=== PATIENT | female | born 1970 | race Caucasian/White ===

== ENCOUNTER 2022-11-30 08:21 | Outpatient (CLI) | payer OTHER, SELFPAY ==
[2022-11-30 10:09] LABS: Basophils Absolute Auto 0.1 K/mm3 (0.0-0.1); Eosinophils Absolute Auto 0.2 K/mm3 (0-0.3); Eosinophils Percent Auto 2.6 % (0-4.4); Hematocrit 45.7 % (37.0-47.0); Hemoglobin 14.8 g/dL (12.0-15.0); Immature Granulocyte Absolute 0.06 K/mm3 (0.00-0.031); Immature Granulocyte Percent A 0.6 % (0-0.5); Lymphocytes Absolute Auto 1.76 K/mm3 (0.9-3.2); Mean Corpuscular HGB Conc 32.4 g/dl (32-36); Mean Corpuscular Hemoglobin 27.7 pg (26-34); Mean Corpuscular Volume 85.6 fl (80-100); Mean Platelet Volume 9.1 fl (7.4-10.4); Monocytes Absolute Auto 0.5 K/mm3 (0.1-0.6); Monocytes Percent Auto 4.9 % (2.6-8.5); Neutrophils Absolute Auto 6.7 K/mm3 (1.3-6.7); Neutrophils Percent Auto 71.9 % (45.5-73.1); Platelet Count Result 330 k/mm3 (150-375); Red Blood Count 5.34 M/mm3 (4.2-5.4); Red Cell Distribution Width 13.7 % (11.5-14.5); White Blood Count 9.3 K/mm3 (4.5-10.0)
[2022-11-30 10:23] LABS: Alanine Aminotransferase 13 U/L (6-35); Albumin Level 4.1 g/dL (3.5-5.1); Alkaline Phosphatase 71 U/L (38-126); Anion Gap 7 mmol/L (8-16); Aspartate Amino Transferase 24 U/L (14-36); Bilirubin,Total 0.7 mg/dL (0.2-1.3); Blood Urea Nitrogen 14 mg/dL (7-17); Carbon Dioxide 28 mmol/L (22-30); Chloride 104 mmol/L (98-107); Cholesterol 271 mg/dL (0-200); Estimated Glomerular Filt Rate > 60; Glucose 112 mg/dL (65-110); HDL Direct 34 mg/dL; Potassium 4.1 mmol/L (3.4-5.0); Sodium 139 mmol/L (137-145); Triglycerides 180 mg/dL (<150)
[2022-11-30 10:34] LABS: LDL Cholesterol Direct 175 mg/dL
== END 2022-11-30 08:22 | disposition home or self-care (01) ==
DX: Z00.00 Encounter for general adult medical examination without abnormal findings (principal); I12.9 Hypertensive chronic kidney disease with stage 1 through stage 4 chronic kidney disease, or unspecified chronic kidney disease
CPT/HCPCS: 36415; 80053; 80061; 82043; 84443; 85025

== ENCOUNTER 2022-11-30 08:35 | Outpatient (CLI) | payer OTHER, SELFPAY ==
[2022-11-30 19:43] LABS: Creatinine Urine 47.7 mg/dL
[2022-11-30 20:07] LABS: MALB Creatinine Ratio < 12.6 mg/g (0-30); Microalbumin Urine Random < 6.0 mg/L (0-16.7)
== END 2022-11-30 08:36 | disposition home or self-care (01) ==
LOC: ANHGOSHLAB 08:36
DX: E11.9 Type 2 diabetes mellitus without complications (principal); Z79.4 Long term (current) use of insulin
CPT/HCPCS: 82043

== ENCOUNTER 2023-07-10 08:02 | Outpatient (CLI) | payer OTHER, SELFPAY ==
[2023-07-10 20:19] LABS: Basophils Absolute Auto 0.1 K/mm3 (0.0-0.1); Eosinophils Absolute Auto 0.3 K/mm3 (0-0.3); Eosinophils Percent Auto 2.9 % (0-4.4); Hematocrit 46.1 % (37.0-47.0); Hemoglobin 14.9 g/dL (12.0-15.0); Immature Granulocyte Absolute 0.03 K/mm3 (0.00-0.031); Immature Granulocyte Percent A 0.3 % (0-0.5); Lymphocytes Absolute Auto 1.56 K/mm3 (0.9-3.2); Lymphocytes Percent Auto 16.2 % (18.3-44.2); Mean Corpuscular HGB Conc 32.3 g/dl (32-36); Mean Corpuscular Volume 86.7 fl (80-100); Mean Platelet Volume 9.3 fl (7.4-10.4); Monocytes Absolute Auto 0.4 K/mm3 (0.1-0.6); Monocytes Percent Auto 4.2 % (2.6-8.5); Neutrophils Absolute Auto 7.3 K/mm3 (1.3-6.7); Neutrophils Percent Auto 75.4 % (45.5-73.1); Platelet Count Result 313 k/mm3 (150-375); Red Blood Count 5.32 M/mm3 (4.2-5.4); Red Cell Distribution Width 13.2 % (11.5-14.5); White Blood Count 9.6 K/mm3 (4.5-10.0)
[2023-07-10 20:38] LABS: Alanine Aminotransferase 21 U/L (6-35); Albumin Level 4.3 g/dL (3.5-5.1); Alkaline Phosphatase 74 U/L (38-126); Anion Gap 9 mmol/L (4-12); Aspartate Amino Transferase 35 U/L (14-36); Blood Urea Nitrogen 12 mg/dL (7-17); Calcium 8.8 mg/dL (8.4-10.2); Carbon Dioxide 23 mmol/L (22-30); Chloride 106 mmol/L (98-107); Cholesterol 166 mg/dL (0-200); Estimated Glomerular Filt Rate > 60; Glucose 107 mg/dL (65-110); HDL Direct 37 mg/dL; Sodium 138 mmol/L (137-145); Triglycerides 241 mg/dL (<150)
[2023-07-10 20:48] LABS: Hemoglobin A1C 5.4 % (<5.7)
[2023-07-10 20:49] LABS: LDL Cholesterol Direct 91 mg/dL
[2023-07-10 21:02] LABS: Creatinine Urine 95.9 mg/dL
[2023-07-10 21:41] LABS: MALB Creatinine Ratio < 6.3 mg/g (0-30); Microalbumin Urine Random < 6.0 mg/L (0-16.7)
[2023-07-10 22:11] LABS: Vitamin B12 > 1000.0 pg/mL (239-931)
== END 2023-07-10 08:03 | disposition home or self-care (01) ==
LOC: ANHGOSHLAB 08:09
DX: E11.29 Type 2 diabetes mellitus with other diabetic kidney complication (principal); R80.9 Proteinuria, unspecified; Z79.4 Long term (current) use of insulin
CPT/HCPCS: 36415; 80053; 80061; 82043; 82607; 83036; 85025

== ENCOUNTER 2023-12-24 08:02 | Outpatient (CLI) | payer OTHER, SELFPAY ==
[2023-12-24 14:31] LABS: Basophils Absolute Auto 0.1 K/mm3 (0.0-0.1); Basophils Percent Auto 1.4 % (0.2-1.2); Eosinophils Absolute Auto 0.2 K/mm3 (0-0.3); Eosinophils Percent Auto 2.3 % (0-4.4); Hematocrit 46.4 % (37.0-47.0); Hemoglobin 14.8 g/dL (12.0-15.0); Immature Granulocyte Absolute 0.03 K/mm3 (0.00-0.031); Immature Granulocyte Percent A 0.4 % (0-0.5); Lymphocytes Absolute Auto 1.69 K/mm3 (0.9-3.2); Lymphocytes Percent Auto 22.9 % (18.3-44.2); Mean Corpuscular HGB Conc 31.9 g/dl (32-36); Mean Corpuscular Hemoglobin 28.2 pg (26-34); Mean Corpuscular Volume 88.4 fl (80-100); Mean Platelet Volume 9.3 fl (7.4-10.4); Monocytes Absolute Auto 0.4 K/mm3 (0.1-0.6); Platelet Count Result 281 k/mm3 (150-375); Red Blood Count 5.25 M/mm3 (4.2-5.4); Red Cell Distribution Width 13.2 % (11.5-14.5); White Blood Count 7.4 K/mm3 (4.5-10.0)
[2023-12-24 14:57] LABS: Alanine Aminotransferase 20 U/L (6-35); Albumin Level 4.1 g/dL (3.5-5.1); Alkaline Phosphatase 73 U/L (38-126); Anion Gap 7 mmol/L (4-12); Aspartate Amino Transferase 53 U/L (14-36); Bilirubin,Total 0.8 mg/dL (0.2-1.3); Blood Urea Nitrogen 12 mg/dL (7-17); Calcium 8.8 mg/dL (8.4-10.2); Carbon Dioxide 28 mmol/L (22-30); Chloride 104 mmol/L (98-107); Cholesterol 171 mg/dL (0-200); Estimated Glomerular Filt Rate > 60; Glucose 88 mg/dL (65-110); HDL Direct 44 mg/dL; Potassium 3.7 mmol/L (3.4-5.0); Sodium 139 mmol/L (137-145); Triglycerides 145 mg/dL (<150)
[2023-12-24 15:09] LABS: LDL Cholesterol Direct 81 mg/dL
[2023-12-24 18:32] LABS: Hemoglobin A1C 5.6 % (<5.7)
== END 2023-12-24 08:03 | disposition home or self-care (01) ==
DX: E11.29 Type 2 diabetes mellitus with other diabetic kidney complication (principal); R80.8 Other proteinuria; Z79.4 Long term (current) use of insulin
CPT/HCPCS: 36415; 80053; 80061; 82607; 83036; 85025

== ENCOUNTER 2024-03-02 14:50 | Outpatient (NON) | payer OTHER, SELFPAY ==
[2024-03-02 19:52] LABS: Creatinine Urine 234.1 mg/dL
== END 2024-03-02 14:51 | disposition home or self-care (01) ==
LOC: ANHGOSHLAB 14:53
DX: E11.9 Type 2 diabetes mellitus without complications (principal); Z79.4 Long term (current) use of insulin
CPT/HCPCS: 82043

== ENCOUNTER → 2024-08-21 13:42 | Outpatient (REF) | payer OTHER, SELFPAY ==
[2024-08-21 19:08] LABS: Urine Cotinine NEGATIVE
== END ==
LOC: ANHLAB 13:42
DX: Z00.00 Encounter for general adult medical examination without abnormal findings (principal)
CPT/HCPCS: 80307

== ENCOUNTER 2025-03-10 07:43 | Outpatient (CLI) | payer OTHER, SELFPAY ==
--- OUTSIDE RECORDS SUMMARY | 2025-03-10 07:48 | XMS_ITS | Encounter Summary ---
Author Organization [facility] Address [address] [place] [address] Care Team Providers Care Email Administrator Name Role Phone Lilian Moore MD Primary Care Provider [phone] Encounter Details Date Type Department Care Team (Late Contact Info) Description 08/21/2004 Outpatient Historical [facility] Maternal and Ground Floor S [facility] [address] [place] [id number] Jose Humphreys DO [address] [facility] [address] [address] Social History Tobacco Use Types Packs/Day Years Used Date Smoking Tobacco: Never Assessed Comments Unknown Sex and Gender Information Value Date Recorded Sex Assigned at Not on file Legal 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 Gender Identity Not on file Sexual Orientation Not on file documented as of this encounter Plan of Treatment Upcoming Encounters Date Type Department Care Team (Late Contact Info) Description 05/11/2025 11:20 AM MACHINE WASHER Office Visit [facility] Primary Care [address] [address] Lilian Moore MD [address] [place] [phone] 07/12/2025 3:00 PM CDT Office Visit [facility] Diabetes Care [facility] [id number] [place] [address] [address] [place] [phone] Pallavi Laurent, CANDY MIXER [address] [facility] [address] [place] [address] documented as of this encounter Visit Diagnoses Not on filedocumented in this encounter Care Teams Email Administrator Relationship Specialty Start Date End Date Lilian Moore MD [address] [place] [phone] PCP - General Family Practice 05/07/24 documented as of this encounter
--- OUTSIDE RECORDS SUMMARY | 2025-03-10 07:48 | XMS_ITS | Encounter Summary ---
Author Organization [facility] Address [address] [place] [address] Care Team Providers Care Kier Tender Name Role Phone Lilian Moore MD Primary Care Provider [phone] Encounter Details Date Type Department Care Team (Late Contact Info) Description 05/22/2004 Outpatient Historical [facility] Maternal and Ground Floor S [facility] [address] [place] [phone] Andre Gutierrez MD [address] [place] [address] Social History Tobacco Use Types Packs/Day Years Used Date Smoking Tobacco: Never Assessed Comments Unknown Sex and Gender Information Value Date Recorded Sex Assigned at Not on file 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 Gender Identity Not on file Sexual Orientation Not on file documented as of this encounter Plan of Treatment Upcoming Encounters Date Type Department Care Team (Late st Contact Info) Description 05/11/2025 11:20 AM BUILDING ECONOMIST Office Visit [facility] Primary Care [address] [address] Lilian Moore MD [facility] [place] [address] 07/12/2025 3:00 PM CDT Office Visit [facility] Diabetes Care [facility] [id number] [place] [address] [address] [place] [phone] Pallavi Laurent, WATER SYSTEMS ENGINEER [address] [facility] [address] [place] [address] documented as of this encounter Visit Diagnoses Not on filedocumented in this encounter Care Teams Kier Tender Relationship Specialty Start Date End Date Lilian Moore MD [address] [place] [phone] PCP - General Family Practice 05/07/24 documented as of this encounter
--- OUTSIDE RECORDS SUMMARY | 2025-03-10 07:48 | XMS_ITS | Encounter Summary ---
Author Organization [facility] Address [address] [place] [address] Care Team Providers Care Marketing Operations Manager Name Role Phone Lilian Moore MD Primary Care Provider [phone] Encounter Details Date Type Department Care Team (Latest Contact Info) Description 05/12/2004 Outpatient Historical [facility] Mikhail Talbot MD [address] [place] [address] ELDER MULTIGRAVID-ANTEPART UM (Primary Dx) Social History Tobacco Use Types Packs/Day Years Used Date Smoking Tobacco: Never Assessed Comments Unknown Sex and Gender Information Value Date Recorded Sex Assigned at Not on file Legal Sex Female 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 HYDROLOGIC MODELER Gender Identity Not on file Sexual Orientation Not on file documented as of this encounter Plan of Treatment Upcoming Encounters Date Type Department Care Team (Late st Contact Info) Description 05/11/2025 11:20 AM HYDROLOGIC MODELER Office Visit [facility] Primary Care [address] [address] Lilian Moore MD [address] [place] [phone] 07/12/2025 3:00 PM CDT Office Visit [facility] Diabetes Care [place] [address] [address] Pallavi Laurent, PILOT PLANT RESEARCH TECHNICIAN [address] [facility] [address] [place] [address] documented as of this encounter Visit Diagnoses Diagnosis Elderly multigravida with antepartum condition or complication- Primary documented in this encounter Care Teams Marketing Operations Manager Relationship Specialty Start Date End Date Lilian Moore MD [address] [place] [phone] PCP - General Family Practice 05/07/24 documented as of this encounter
--- OUTSIDE RECORDS SUMMARY | 2025-03-10 07:48 | XMS_ITS | Encounter Summary ---
Author Organization [facility] Address [address] [place] [address] Care Team Providers Care Financial Aid Director Name Role Phone Lilain Moore MD Primary Care Provider Encounter Details Date Type Department Care Team (Late Contact Info) Description 06/05/2004 Outpatient [address] 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 STORE MARKETING REPRESENTATIVE Gender Identity Not on file Sexual Orientation Not on file documented as of this encounter Plan of Treatment Upcoming Encounters Date Type Department Care Team (Late st Contact Info) Description 05/11/2025 11:20 AM IN STORE MARKETING REPRESENTATIVE Office Visit [facility] Primary Care [address] [address] Lilian Moore MD [facility] [place] [address] 07/12/2025 3:00 PM CDT Office Visit [facility] Diabetes Care [facility] [id number] [place] [address] [address] [place] [phone] Pallavi Laurent, PUBLIC POLICY ASSOCIATE [address] [facility] [address] [place] [address] documented as of this encounter Visit Diagnoses Not on filedocumented in this encounter Care Teams Financial Aid Director Relationship Specialty Start Date End Date Lilian oMore MD [address] [place] [phone] PCP - General Family Practice 05/07/24 documented as of this encounter
--- OUTSIDE RECORDS SUMMARY | 2025-03-10 07:48 | XMS_ITS | Encounter Summary ---
Author Organization [facility] Address [address] [place] [address] Care Team Providers Care Electroplater Apprentice Name Role Phone Lilian Moore MD Primary Care Provider [phone] Encounter Details Date Type Department Care Team (Late Contact Info) Description 10/18/1998 Outpatient Historical [facility] Medical [place] [facility] [address] [facility] [address] [phone] Odette Porter Social History Tobacco Use Types Packs/Day Years Used Date Smoking Tobacco: Never Assessed Comments Unknown Sex and Gender Information Value Date Recorded Sex Assigned at Not on file Legal Sex Female 3:48 AM PROGRAM ATTENDANT Gender Identity Not on file Sexual Orientation Not on file documented as of this encounter Plan of Treatment Upcoming Encounters Date Type Department Care Team (Late Contact Info) Description 05/11/2025 11:20 AM PROGRAM ATTENDANT Office Visit [facility] Primary Care [address] [address] Lilian Moore MD [address] [place] [phone] 07/12/2025 3:00 PM CDT Office Visit [facility] Diabetes Care [place] [address] [facility] [address] [place] [phone] Pallavi Laurent FNP [address] [facility] [address] [place] [phone] documented as of this encounter Visit Diagnoses Not on filedocumented in this encounter Care Teams Electroplater Apprentice Relationship Specialty Start Date End Date Lilian Moore MD [facility] [place] [address] PCP - General Family Practice 05/07/24 documented as of this encounter
--- OUTSIDE RECORDS SUMMARY | 2025-03-10 07:48 | XMS_ITS | Clinical Summary ---
Author Organization [facility] Address [address] [place] [address] Phone Care Team Providers Care Hand Turner Name Role Phone Lilian Moore MD Primary Care Provider [phone] Allergies Active Allergy Reactions Criticality Noted Date Comments Adhesive Tape-Silicones Itching,Other (S ee Comments) Medium 07/29/2024 Blisters reported from tape applied post breast biopsy on 07/27/24 Meperidine 03/20/2004 Propoxyphene N-Acetaminophen 03/20/2004 Medications Blood-Glucose Sensor (Dexcom G7 Sensor) Device Apply to skin every 10 days 9 Each 3 024 Active tirzepatide (Mounjaro) 15 mg/0.5 mL Pen Injector Inject 0.5 mL (15 mg) by subcutaneous injection every 7 days. 6 mL 3 025 Active atorvastatin (LIPITOR) 80 mg tabletIndications:Pure hypercholesterolemia Take 1 Tablet (80 mg) by mouth late in the day. 100 Tablet 3 025 Active ketorolac tromethamine (TORADOL) 10 mg tablet Take 1 Tablet (10 mg) by mouth every 6 hours as needed for Pain. 15 Tablet 025 Active methocarbamoL (ROBAXIN) 750 mg tablet Take 1 Tablet (750 mg) by mouth 4 times daily. 20 Tablet 025 Active SUMAtriptan (IMITREX) 50 mg tabletIndications:Migra ine without status migrainosus, not intractable, unspecified migraine type TAKE 1 TABLET AT FIRST ONSET OF H.A. MAY REPEAT IN 2 HRS. MAX OF 4 IN 24 HOURS. 9 Tablet 5 025 Active Active Problems Problem Noted Date Diagnosed Date Migraine without status migrainosus, not intract able 07/22/2015 Pure hypercholesterolemia 04/22/2015 Assessment & Plan (07/13/2024 4:28 PM CDT): Stable. Continue statin at current dose daily. See medication list. Assessment & Plan (04/01/2023 4:28 PM RETAIL STORE ASSISTANT): Stable. Atorvastatin 80 mg daily Type 2 diabetes mellitus wit h microalbuminuria, with long-term current use of insulin 01/14/2015 Overview (08/21/2016): 08/2106: JESSICA negative; C-pep 2.2 Assessment & Plan (07/13/2024 4:28 PM CDT): Well controlled. Continue current plan of care. Continue current medications.Mounjaro 15 mg weekly Dexcom G6 CGM. Blood glucose goals and diabetes diet reviewed with patient. Increase physical activity as able. Orders: POC HEMOGLOBIN A1C [place] CONTINUOUS GLUCOSE MONITORING ANALYSIS I&R Assessment & Plan (08/02/2016 2:17 PM CDT): Diabetes: Inadequate control. Medications reviewed and refilled/adjusted as indicated. See medication orders. Labs ordered/reviewed. Unable to tolerate high dose metformin GLP-1 previously ineffective Family history of breast cancer in first degree relative 06/11/2014 Morbid obesity with body mass index of 40.0-49.9 02/06/2013 Assessment & Plan (07/13/2024 4:28 PM CDT): Increase physical activity as able. Sebaceous cyst 12/11/2005 Resolved Problems Problem Noted Date Diagnosed Date Resolved Date Insulin pump in place 01/01/20222024 Benign hypertension 04/22/2015 04/10/19 24 DM (diabetes mellitus), type 2 02/06/2013 01/14/2015 CKD (chronic kidney disease) stage 1, GFR 90 ml/min or greater 02/06/2013 06/20/2020 Hypertension 03/03/2012 04/22/2015 Diabetes mellitus type II, c ontrolled, with no complications 01/26/2011 02/06/2013 Hyperlipidemia 01/26/2011 04/22/2015 Impaired fasting glucose 12/11/200501/2011 ABN GLUCOSE-ANTEPARTUM 12/20/200401/26 Routine general medical exam ination at a health care facility 12/20/2004 02/03/2010 Screening for lipoid disorders 12/20/2004 02/03/2010 Need for prophylactic vaccin ation with tetanus-diphtheria (Td) 12/20/2004 02/03/2010 Encounters Date Type Department Care Team Description 03/09/2025 External Device Data STL ABSTRACTION Provider, Abstract 03/09/2025 External Device Data STL ABSTRACTION Provider, Abstract 02/16/2025 External Device Data STL ABSTRACTION Provider, Abstract 02/09/2025 External Device Data STL ABSTRACTION Provider, Abstract 02/02/2025 External Device Data STL ABSTRACTION Provider, Abstract 01/19/2025 External Device Data STL ABSTRACTION Provider, Abstract from Last 3 Months Immunizations Immunization Administration Dates Next Due (ADACEL/BOOSTRIX)(10 YR UP) TDAP VACCINE, 0.5ML, IM 11/06/2024,01/14/2015 (PFIZER)(12 YR UP) COVID-19 VACCINE - EMERGENCY USE AUTHORIZATION, MRNA, [id number](PF) 30 MCG/0.3 ML IM SUSP 03/09/2021,05/31/2020,05/10/2020 (PNEUMOVAX 23)(50 YRS UP) PN EUMOCOCCAL POLYSACCHARIDE (PPV23) 0.5 ML, IM 01/26/2011 (PREVNAR 13)(6 WKS UP) PNEUM OCOCCAL CONJUGATE (PCV13) 0.5 ML, IM 03/28/2016 (RECOMBIVAX HB/ENGERIX-B)(11 YR UP) HEPATITIS B VACCINE 10 MCG/1 ML OR 20 MCG/1 ML ADOL OR ADULT 2 - 3 DOSE PF, IM 07/01/2018,05/07/2018 (TDVAX)(7 YRS UP) TETANUS AN D DIPHTHERIA TOXOIDS, ADSORBED (2 LF OF TETANUS TOXOID AND 2 LF OF DIPHTHERIA TOXOID), 0.5ML (PF), IM 12/20/2004 INFLUENZA VACCINE QUADRIVALE NT 3 YR UP PF IM 12/11/2019,01/31/2019,03/13/2018 INFLUENZA VACCINE TRIVALENT SPLIT VIRUS, (6 MOS UP), 0.5ML (PF), IM 12/24/2023 Influenza Seasonal Unspecifi ed Formulation IM 12/16/2020,12/12/2019,01/08/2019,02/15,12/17/2011,12/22/2010 Influenza Vaccine Split 3+ Yrs IM 2016,01/14/2015,02/06/2013,02/03 Family History Medical History Relation Name Comments Heart Disease Father Elmo Garcia High Cholesterol Father Elmo Garcia Hypertension Father Elmo Garcia Skin Cancer Father Elmo Garcia Emphysema Maternal Grandfather Thyroid Disease Maternal Grandmother Kelly Rico Breast Cancer Mother Charlotte Garcia early 40s Diabetes Mother Charlotte Garcia High Cholesterol Mother Charlotte Garcia Hypertension Mother Charlotte Garcia Asthma Son Keenan Marshall Bronchitis Neg Hx Cancer Neg Hx Colon Cancer Neg Hx Heart Failure Neg Hx Ovarian Cancer Neg Hx Relation Name Status Comments Father Elmo Garcia Maternal Grandfather Maternal Grandmother Kelly Rico Mother Charlotte Garcia Son Keenan Marshall Social History Tobacco Use Types Packs/Day Years Used Date Smoking Tobacco: Never Smokeless Tobacco: Never Tobacco Cessation:Counseling Given: No Alcohol Use Standard Drinks/Week Comments Yes 0 (1 standard drink = 0.6 oz pur e alcohol) on occasion Feeling Safe Answer Date Recorded Are you in a relationship wi th someone who hurts you emotionally and/or physically? No 08/10/2022 Comments No Sex and Gender Information Value Date Recorded Sex Assigned at Not on file Legal Sex Female 3:48 AM RETAIL STORE ASSISTANT Gender Identity Not on file Sexual Orientation Not on file Occupation Industry Job Start Date Job End Date Not on file Not on file Not on file Not on file Last Filed Vital Signs Vital Sign Reading Time Taken Comments Blood Pressure 132/78 11/06/2024 11:44 AM CDT Pulse 82 11/06/2024 11:44 AM CDT Temperature 36.3 C (97.3 F) 11/06/2024 11:44 AM CDT Respiratory Rate 16 2024 8:53 AM CDT Oxygen Saturation 98% 11/06/2024 11:44 AM CDT Inhaled Oxygen Concentration - - Weight 112.9 kg (249 lb) 11/06/2024 11:44 AM CDT Height 165.1 cm (5' 5) 11/06/2024 11:44 AM CDT Body Mass Index 41.44 11/06/2024 11:44 AM CDT Plan of Treatment Upcoming Encounters Date Type Department Care Team (Late st Contact Info) Description 05/11/2025 11:20 AM RETAIL STORE ASSISTANT Office Visit [facility] Primary Care [facility] [address] [place] [phone] Lilian Moore MD [address] [place] [address] 07/12/2025 3:00 PM CDT Office Visit [facility] Diabetes Care [place] [address] [facility] [address] [place] [address] Pallavi Laurent, CAR [address] [facility] [address] [place] [phone] Health Maintenance Due Date Last Done Comments COLORECTAL SCREENING 2013 Flex Sig/CT Colonography Q 5 years 2013 ZOSTER VACCINE (1 of 2) 2018 HEPATITIS B VACCINES (3 of 3 - 19+ 3-dose series) 11/04/2018 07/01/2018, 05/07/2018 FIT/FOBT Q 1 year 10/12/2020 10/13/2019 PAP SMEAR 10/14/2023 10/13/2020, 09/16, 09/25/2010, Additional history exists DIABETES ANNUAL RETINAL EXAM 03/23/202408/2023, 03/21/2022, 12/13/2020, Additional history exists INFLUENZA VACCINE (#1) 2024 , 12/16/2020, 12/12/2019, Additional history exists COVID-19 Vaccine (2024-2 6 season) 2024 03/09/2021, 05/31/2020, 05/10/2020 LDL CHOLESTEROL ANNUAL 12/23/2024 , 11/18/2021, 09/16/2020, Additional history exists DIABETES HBA1C Q 6 MONTHS 01/12/20252024, 12/24/2023, 04/01/2023, Additional history exists DIABETES MICROALBUMIN ANNUAL SCREEN 03/02/2025 03/02/2024, 01/13/2024, 12/10/2022, Additional history exists DIABETES ANNUAL FOOT EXAM 05/07/20252024, 01/01/2022, 12/13/2020, Additional history exists DIABETES: A1C (Auto Order) 07/13/202507/13, 12/24/2023, 04/01/2023, Additional history exists BREAST CANCER SCREENING 2025 07/28/19, 06/01/2024, 02/15/2022, Additional history exists CERVICAL CANCER SCREENING 10/13/2025 HPV/Cotest (21-29) 10/13/2025 10/13/2020, 10/13/2019 HPV/Cotest (30-65) 10/13/2025 10/13/2020, 10/13/2019 Colorectal Cancer Screening 05/20/2027 FIT-DNA Q 3 years 05/20/2027 05/19/2024 DTAP/TDAP/TD VACCINES (3 - T d or Tdap) 11/06/2034 11/06/2024, 01/14/2015, 12/20/2004 Medical Devices Implanted Type Area Foundry Helper Device Identifier Shelf Expiration Date Model / Serial / Lot Clip-07/27/2024 Implanted:Qty: 1 on 2024 by Rema Magana MD Clip Right: Breast 02/25/2025 SMARK-EVIVA -13 / / [id number] Description:SECUREMARK SITE 1 MARKER Procedures Procedure Name Priority Date/Time Associated Diagnosis Comments MAMMO DIAG UNI RIGHT 3D JESUS W OR WO CAD Routine 2024 7:35 AM CDT Abnormality of right breast on screening mammogram POC HEMOGLOBIN A1C Routine 07/13/2024 4: 13 PM CDT Type 2 diabetes mellitus with microalbuminuria, with long-term current use of insulin ([facility]) COLON CANCER SCREEN, STOOL DNA Routine 05/19/2024 12:03 AM RETAIL STORE ASSISTANT Encounter for colorectal cancer screening MICROALBUMIN, RANDOM URINE Routine 03/02/2024 3:02 PM RETAIL STORE ASSISTANT LIPID PANEL Routine 12/24/2023 [place] BILAT DIL RETINAL EXAM Routine 03/23/2023 4:03 PM RETAIL STORE ASSISTANT CERV/VAG CYTO SCREEN PAP RLFX HPV Routine 10/13/2020 3:04 PM CDT Encounter for gynecological examination with abnormal finding POC OCCULT BLOOD, IMMUNO, QUAL, STOOL Routine 10/13/2019 11:03 AM CDT Screening for malignant neoplasm of the rectum from Last 3 Months or Most Recently Relevant to Health Maintenance Results * (ABNORMAL) MAMMO 3D JESUS DIAGNOSTIC UNI RT 3D W OR WO CAD (2024 7:35 AM CDT) Anatomical Region Laterality Modality Breast Right Mammography 2024 7:35 AM CDT Impressions 2024 7:48 AM CDT IMPRESSION: Persistent focal asymmetry in the inner slightly upper right breast. Is no sonographic correlate is seen stereotactic biopsy is recommended. RECOMMENDATIONS: Stereotactic right breast biopsy. Patient has been informed. DICTATION LOCATION: [facility] Narrative 2024 7:48 AM CDT EXAM: MAMMO 3D JESUS DIAGNOSTIC UNI RT 3D W OR WO CAD DATE: 2024 7:35 AM HISTORY: Recent abnormal screening mammogram. TECHNIQUE: Full-field digital mammography of the right breast was performed. Low-dose full-field digital breast tomosynthesis examination was performed with 3D acquisitions. Examination is read in conjunction with computer aided detection. COMPARISON: Mammograms dating back to 2018 BREAST COMPOSITION: There are scattered areas of fibroglandular density. FINDINGS: There is a persistent focal asymmetry in the inner slightly upper right breast with the central punctate calcification. OVERALL FINAL ASSESSMENT: BI-RADS CATEGORY 4: Suspicious Findings Idalmis Thrasher PA-C MAMMO ORDERABLES Final R esult * POC HEMOGLOBIN A1C (07/13/2024 4:13 PM CDT) HGB A1C POC 5.4 4.0 - 6.0 % [facility] AUDIT CONTROL CLERK - [place] KIT LOT NUMBER POC na [facility] AUDIT CONTROL CLERK - [place] KIT EXP DATE POC na [facility] AUDIT CONTROL CLERK - [place] Blood, capillary 07/13/2024 4:13 PM CDT Pallavi Amaral Mehran DIRECTOR OF PUBLIC HEALTH POINT OF CARE TESTING Final Result [facility] AUDIT CONTROL CLERK - [place] CLIA# [id number] [address] [place] [address] * COLON CANCER SCREEN, STOOL DNA (05/19/2024 12:03 AM RETAIL STORE ASSISTANT) COLOGUARD RESULT Negative Negative [facility] Comment: NEGATIVE TEST RESULT. A negative Cologuard result indicates a low likelihood that a colorectal cancer (CRC) or advanced adenoma (adenomatous polyps with more advanced pre-malignant features) is present. The chance that a person with a negative Cologuard test has a colorectal cancer is less than 1 in 1500 (negative predictive value >99.9%) or has an advanced adenoma is less than 5.3% (negative predictive value 94.7%). These data are based on a prospective cross-sectional study of 10,000 individuals at average risk for colorectal cancer who were screened with both Cologuard and colonoscopy. (Rene Orozco al, N Engl J Med 2014;370(14):2851-2602) The normal value (reference range) for this assay is negative. COLOGUARD RE-SCREENING RECOMMENDATION: Periodic colorectal cancer screening is an important part of preventive healthcare for asymptomatic individuals at average risk for colorectal cancer. Following a negative Cologuard result, the [place] Cancer Society and U.S. Multi-Society Task Force screening guidelines recommend a Cologuard re-screening interval of 3 years. References: [place] [employer] Guideline for Colorectal Cancer Screening: https://www.cancer.org/cancer/xtdzr-linqkw-cqhtqn/guhihbnji-bqijgqapu-dtszltc/ac s-rec ommendations.html.; Quang DK, Hazel CR, Hyun EstebanK, Colorectal Cancer Screening: Recommendations for Physicians and Patients from the U.S. Multi-Society Task Force on Colorectal Cancer Screening , Am J Gastroenterology 2017; 112:9101-6462. TEST DESCRIPTION: Composite algorithmic analysis of stool DNA-biomarkers with hemoglobin immunoassay. Quantitative values of individual biomarkers are not reportable and are not associated with individual biomarker result reference ranges. Cologuard is intended for colorectal cancer screening of adults of either sex, 45 years or older, who are at average-risk for colorectal cancer (CRC). Cologuard has been approved for use by the U.S. FDA. The performance of Cologuard was established in a cross sectional study of average-risk adults aged 50-84. Cologuard performance in patients ages 45 to 49 years was estimated by sub-group analysis of near-age groups. Colonoscopies performed for a positive result may find as the most clinically significant lesion: colorectal cancer [4.0%], advanced adenoma (including sessile serrated polyps greater than or equal to 1cm diameter) [20%] or non- advanced adenoma [31%]; or no colorectal neoplasia [45%]. These estimates are derived from a prospective cross-sectional screening study of 10,000 individuals at average risk for colorectal cancer who were screened with both Cologuard and colonoscopy. (Rene Coronel et al, N Engl J Med 2014;370(14):0366-6020.) Cologuard may produce a false negative or false positive result (no colorectal cancer or precancerous polyp present at colonoscopy follow up). A negative Cologuard test result does not guarantee the absence of CRC or advanced adenoma (pre-cancer). The current Cologuard screening interval is every 3 years. ([place] Cancer Society and U.S. Multi-Society Task Force). Cologuard performance data in a 10,000 patient pivotal study using colonoscopy as the reference method can be accessed at the following location: www.Tinybop.BioVex/results. Additional description of the Cologuard test process, warnings and precautions can be found at www.Koubei.com.com. Stool STOOL SPECIMEN / Unknown 05/19/2024 12:03 AM RETAIL STORE ASSISTANT 05/20/2024 3:42 PM RETAIL STORE ASSISTANT us Idalmis Thrasher PA-C BODY FLUIDS AND STOOLS F inal Result [facility] CLIA # [id number] [address] , [address] [place] [address] * MICROALBUMIN, RANDOM URINE (03/02/2024 3:02 PM RETAIL STORE ASSISTANT) ABSTRACTED MICROALBUMIN,UR INE 14.0 [facility] Urine URINE SPECIMEN OBTAINED BY CLEAN CATCH PROCEDURE / Unknown us Abstract Provider URINE ORDERABLES Edited Result - Final Performing Organization Address [facility] Co de Phone Number [facility] CLIA# [id number] [address] [facility] [address] [place] [address] * LIPID PANEL (12/24/2023) ABSTRACTED CHOLESTEROL 171 ABSTRACTED TRIGLYCERIDE 145 ABSTRACTED HDL 44 ABSTRACTED LDL CALCULATED 81 Blood 12/24/2023 us Pallavi Laurent DIRECTOR OF PUBLIC HEALTH CHEMISTRY ORDERABLES Final Result * [place] BILAT DIL RETINAL EXAM (03/23/2023 4:03 PM RETAIL STORE ASSISTANT) us Abstract Provider [place] - MEDICAL [facility] Final Re sult [facility] CLIA# [id number] [address] [address] * CERV/VAG CYTO SCREEN PAP RLFX HPV (10/13/2020 3:04 PM CDT) CLINICAL INFORMATION [facility] Comment:Information not prov ided LAST MENSTRUAL PERIOD [facility] Comment:INFORMATION NOT PROV IDED PREV PAP: [facility] Comment:INFORMATION NOT PROV IDED PREV BX: [facility] Comment:INFORMATION NOT PROV IDED SOURCE [facility] Comment:Endocervix ADEQUACY: [facility] Comment: Satisfactory for evaluation. Endocervical/transformation zone component absent. Age and/or menstrual status not provided PAP INTERP [facility] Comment:Negative for intraep ithelial lesion or malignancy. COMMENT [facility] Comment: This Pap test has been evaluated with computer assisted technology. LASER BEAM MACHINE OPERATOR: [facility] Comment: MLO, CT(ASCP) CT screening location: [place] [address] [place] [address] REVIEW LASER BEAM MACHINE OPERATOR: [facility] Comment: SAQIB, CT(ASCP) CT screening location: [place] [address] [place] [address] SEE NOTE [facility] Comment: EXPLANATORY NOTE: The Pap is a screening test for cervical cancer. It is not a diagnostic test and is subject to false negative and false positive results. It is most reliable when a satisfactory sample, regularly obtained, is submitted with relevant clinical findings and history, and when the Pap result is evaluated along with historic and current clinical information. Test Performed at: [facility] [address] [place] [address] Susan-Raffyu Thi Vo Genital SWAB OF ENDOCERVIX / Unknown 10/13/2020 3:04 PM CDT 10/13/2020 10:06 PM CDT Mikhail Talbot MD PATHOLOGY/CYTOLOGY ORDERABLE S Final Result [facility] [address] [place] [address] * POC OCCULT BLOOD, IMMUNO, QUAL, STOOL (10/13/2019 11:03 AM CDT) OCCULT BLOOD, IMMUNOASSAY POC Negative Negative [facility] AUDIT CONTROL CLERK TOWER A [place] [address] INTERNAL KIT QC Pass Pass [facility] AUDIT CONTROL CLERK TOWER A [place] [address] KIT LOT NUMBER POC [id number] [facility] AUDIT CONTROL CLERK TOWER A [place] [address] KIT EXPIRATION DATE POC 01/26/21 [facility] AUDIT CONTROL CLERK TOWER A [place] [address] Stool STOOL SPECIMEN / Unknown 10/13/2019 11:03 AM CDT Mikhail Talbot MD POINT OF CARE TESTING Final Result [facility] AUDIT CONTROL CLERK YAJAIRA Orozco [facility] [address] IA# [id number] [address] [facility] [address] [place] [address] from Last 3 Months or Most Recently Relevant to Health Maintenance Insurance [address] [place] [id number] [employer] [address] [place] [id number] [facility] [id number] [address] [place] [address] [facility] [id number] [place] [address] [facility] [id number] Advance Directives For more information, please contact: [phone] * Full Code (Latest Code Status on File) Date Activated Date Inactivated Comments 08/10/2022 11:41 AM 08/10/2022 3:16 PM Care Teams Hand Turner Relationship Specialty Start Date End Date Lilian Moore MD [address] [place] [phone] PCP - General Family Practice 05/07/24
--- OUTSIDE RECORDS SUMMARY | 2025-03-10 07:48 | XMS_ITS | Encounter Summary ---
Author Organization [facility] Address [address] [place] [address] Care Team Providers Care Box Covering Machine Operator Name Role Phone Lilian Moore MD Primary Care Provider [phone] Encounter Details Date Type Department Care Team (Late Contact Info) Description 08/31/[address] [facility] Maternal and Ground Floor [facility] [address] [place] [phone] Andre Gutierrez MD [address] [place] [address] Social History Tobacco Use Types Packs/Day Years Used Date Smoking Tobacco: Never Assessed Comments Unknown Sex and Gender Information Value Date Recorded Sex Assigned at Not on file Legal Sex Female 3:48 AM PRODUCT TRANSFER PUMPER Gender Identity Not on file Sexual Orientation Not on file documented as of this encounter Plan of Treatment Upcoming Encounters Date Type Department Care Team (Late st Contact Info) Description 05/11/2025 11:20 AM PRODUCT TRANSFER PUMPER Office Visit [facility] Primary Care [address] [phone] Lilian Moroe MD [facility] [place] [address] 07/12/2025 3:00 PM CDT Office Visit [facility] Diabetes Care [facility] [id number] [place] [address] [address] [place] [phone] Pallavi Laurent, MEDICAL CONSULTANT [address] [facility] [address] [place] [address] documented as of this encounter Visit Diagnoses Not on filedocumented in this encounter Care Teams Box Covering Machine Operator Relationship Specialty Start Date End Date Lilian Moore MD [address] [place] [phone] PCP - General Family Practice 05/07/24 documented as of this encounter
--- OUTSIDE RECORDS SUMMARY | 2025-03-10 07:48 | XMS_ITS | Encounter Summary ---
Author Organization [facility] Address [address] [place] [address] Care Team Providers Care Doctor Podiatric Medicine Name Role Phone Lilian Moore MD Primary Care Provider [phone] Encounter Details Date Type Department Care Team (Late Contact Info) Description 07/24/2002 Outpatient Historical [facility] Maternal and Ground Floor S [facility] [address] [place] [phone] Andre Gutierrez MD [address] [place] [address] Social History Tobacco Use Types Packs/Day Years Used Date Smoking Tobacco: Never Assessed Comments Unknown Sex and Gender Information Value Date Recorded Sex Assigned at Not on file Legal Sex Female 3:48 AM BOAT RIGGER Gender Identity Not on file Sexual Orientation Not on file documented as of this encounter Plan of Treatment Upcoming Encounters Date Type Department Care Team (Late st Contact Info) Description 05/11/2025 11:20 AM BOAT RIGGER Office Visit [facility] Primary Care [address] [address] Lilian Moore MD [facility] [place] [address] 07/12/2025 3:00 PM CDT Office Visit [facility] Diabetes Care [facility] [id number] [place] [address] [address] [place] [phone] Pallavi Laurent, PHYSICAL THERAPY AIDE [address] [facility] [address] [place] [address] documented as of this encounter Visit Diagnoses Not on filedocumented in this encounter Care Teams Doctor Podiatric Medicine Relationship Specialty Start Date End Date Lilian Moore MD [address] [place] [phone] PCP - General Family Practice 05/07/24 documented as of this encounter
--- OUTSIDE RECORDS SUMMARY | 2025-03-10 07:48 | XMS_ITS | Encounter Summary ---
Author Organization [facility] Address [address] [place] [address] Care Team Providers Care City Wellness Coordinator Name Role Phone Lilian Moore MD Primary Care Provider [phone] Encounter Details Date Type Department Care Team (Latest Contact Info) Description 10/18/1998 Outpatient Historical [facility]PAT[facility] Odette Porter Lumbago (Primary Dx) Social History Tobacco Use Types Packs/Day Years Used Date Smoking Tobacco: Never Assessed Comments Unknown Sex and Gender Information Value Date Recorded Sex Assigned at Not on file Legal Sex Female 3:48 AM SPRING COILER HAND Gender Identity Not on file Sexual Orientation Not on file documented as of this encounter Plan of Treatment Upcoming Encounters Date Type Department Care Team (Late st Contact Info) Description 05/11/2025 11:20 AM SPRING COILER HAND Office Visit [facility] Primary Care [address] [place] [address] Lilian Moore MD [address] [place] [address] 07/12/2025 3:00 PM CDT Office Visit [facility] Diabetes Care [facility] [address] [facility] [address] [place] [address] Pallavi Laurent, CAR [address] [facility] [address] [place] [address] documented as of this encounter Visit Diagnoses Diagnosis Lumbago- Primary documented in this encounter Care Teams City Wellness Coordinator Relationship Specialty Start Date End Date Lilian Moore MD [address] [place] [phone] PCP - General Family Practice 05/07/24 documented as of this encounter
--- OUTSIDE RECORDS SUMMARY | 2025-03-10 07:48 | XMS_ITS | Encounter Summary ---
Author Organization [facility] Address [address] [place] [address] Care Team Providers Care Barrel Lapper Name Role Phone Lilian Moore MD Primary Care Provider [phone] Encounter Details Date Type Department Care Team (Latest Contact Info) Description 04/10/2004 Outpatient Historical [facility] Mikhail Talbot MD [address] [place] [address] ELDER MULTIGRAVID-ANTEPART UM (Primary Dx) Social History Tobacco Use Types Packs/Day Years Used Date Smoking Tobacco: Never Assessed Comments Unknown Sex and Gender Information Value Date Recorded Sex Assigned at Not on file Legal Sex Female 3:48 AM DONOR SERVICES MANAGER Gender Identity Not on file Sexual Orientation Not on file documented as of this encounter Plan of Treatment Upcoming Encounters Date Type Department Care Team (Late st Contact Info) Description 05/11/2025 11:20 AM DONOR SERVICES MANAGER Office Visit [facility] Primary Care [address] [address] Lilian Moore MD [address] [place] [address] 07/12/2025 3:00 PM CDT Office Visit [facility] Diabetes Care [place] [address] [address] Pallavi Laurent, ASSISTANT FOOD SERVICE DIRECTOR [address] [facility] [address] [place] [address] documented as of this encounter Visit Diagnoses Diagnosis Elderly multigravida with antepartum condition or complication- Primary documented in this encounter Care Teams Barrel Lapper Relationship Specialty Start Date End Date Lilian Moore MD [address] [place] [address] PCP - General Family Practice 05/07/24 documented as of this encounter
--- OUTSIDE RECORDS SUMMARY | 2025-03-10 07:48 | XMS_ITS | Encounter Summary ---
Author Organization [facility] Address [address] [place] [address] Care Team Providers Care Die Maker Stamping Name Role Phone Lilian Moore MD Primary Care Provider [phone] Encounter Details Date Type Department Care Team (Late Contact Info) Description 09/04/2004 Outpatient Historical [facility] Maternal and Ground Floor S [facility] [address] [place] [address] Elizabeth Gresham MD [address] [place] [address] Social History Tobacco Use Types Packs/Day Years Used Date Smoking Tobacco: Never Assessed Comments Unknown Sex and Gender Information Value Date Recorded Sex Assigned at Not on file Legal Sex Female 3:48 AM PROMOTIONAL MARKETING ANALYST Gender Identity Not on file Sexual Orientation Not on file documented as of this encounter Plan of Treatment Upcoming Encounters Date Type Department Care Team (Late st Contact Info) Description 05/11/2025 11:20 AM PROMOTIONAL MARKETING ANALYST Office Visit [facility] Primary Care [address] [address] Lilian Moore MD [address] [place] [address] 07/12/2025 3:00 PM CDT Office Visit [facility] Diabetes Care [facility] [address] [place] [address] [address] [place] [phone] Pallavi Laurent, INSURANCE SALES SUPERVISOR [address] [facility] [address] [place] [address] documented as of this encounter Visit Diagnoses Not on filedocumented in this encounter Care Teams Die Maker Stamping Relationship Specialty Start Date End Date Lilian Moore MD [address] [place] [phone] PCP - General Family Practice 05/07/24 documented as of this encounter
--- OUTSIDE RECORDS SUMMARY | 2025-03-10 07:48 | XMS_ITS | Encounter Summary ---
Author Organization [facility] Address [address] [place] [address] Care Team Providers Care Remote Sensing Technologist Name Role Phone Lilian Moore MD Primary Care Provider [phone] Encounter Details Date Type Department Care Team (Late Contact Info) Description 08/24/2004 Outpatient Historical [facility] Maternal and Ground Floor S [facility] [address] [place] [address] Andre Gutierrez MD [address] [place] [address] Social History Tobacco Use Types Packs/Day Years Used Date Smoking Tobacco: Never Assessed Comments Unknown Sex and Gender Information Value Date Recorded Sex Assigned at Not on file Legal Sex Female 3:48 AM WIND TURBINE BLADE REPAIR TECHNICIAN Gender Identity Not on file Sexual Orientation Not on file documented as of this encounter Plan of Treatment Upcoming Encounters Date Type Department Care Team (Late st Contact Info) Description 05/11/2025 11:20 AM WIND TURBINE BLADE REPAIR TECHNICIAN Office Visit [facility] Primary Care [address] [address] Lilian Moore MD [facility]9 [place] [address] 07/12/2025 3:00 PM CDT Office Visit [facility] Diabetes Care [facility] [id number] [place] [address] 100 [place] [phone] Pallavi Laurent, COMPLIANCE REVIEW SPECIALIST [address] [facility] [place] [address] [place] [address] documented as of this encounter Visit Diagnoses Not on filedocumented in this encounter Care Teams Remote Sensing Technologist Relationship Specialty Start Date End Date Lilian Moore MD [address] [place] [phone] PCP - General Family Practice 05/07/24 documented as of this encounter
--- OUTSIDE RECORDS SUMMARY | 2025-03-10 07:48 | XMS_ITS | Encounter Summary ---
Author Organization [facility] Address [address] [place] [address] Care Team Providers Care Job Service Specialist Name Role Phone Lilian Moore MD Primary Care Provider [phone] Encounter Details Date Type Department Care Team (Latest Contact Info) Description 06/13/2004 Outpatient Historical [facility] Mikhail Talbot MD [address] [place] [address] ELDER MULTIGRAVID-ANTEPART UM (Primary Dx) Social History Tobacco Use Types Packs/Day Years Used Date Smoking Tobacco: Never Assessed Comments Unknown Sex and Gender Information Value Date Recorded Sex Assigned at Not on file Legal Sex Female 3:48 AM ADJUNCT FACULTY FOR MEDICAL TERMINOLOGY Gender Identity Not on file Sexual Orientation Not on file documented as of this encounter Plan of Treatment Upcoming Encounters Date Type Department Care Team (Late st Contact Info) Description 05/11/2025 11:20 AM ADJUNCT FACULTY FOR MEDICAL TERMINOLOGY Office Visit [facility] Primary Care [address] [address] Lilian Moore MD [address] [place] [address] 07/12/2025 3:00 PM CDT Office Visit [facility] Diabetes Care [place] [address] [address] Pallavi Laurent, MULTIMEDIA COORDINATOR [address] [facility] [address] [place] [address] documented as of this encounter Visit Diagnoses Diagnosis Elderly multigravida with antepartum condition or complication- Primary documented in this encounter Care Teams Job Service Specialist Relationship Specialty Start Date End Date Lilian Moore MD [address] [place] [phone] PCP - General Family Practice 05/07/24 documented as of this encounter
--- OUTSIDE RECORDS SUMMARY | 2025-03-10 07:48 | XMS_ITS | Encounter Summary ---
Author Organization [facility] Address [address] [place] [address] Care Team Providers Care Repair Weaver Name Role Phone Lilian Moore MD Primary Care Provider [phone] Encounter Details Date Type Department Care Team (Late Contact Info) Description 09/28/[address] [facility] Maternal and Ground Floor S [facility] [address] [place] [address] Elizabeth Gresham MD [address] [place] [address] Social History Tobacco Use Types Packs/Day Years Used Date Smoking Tobacco: Never Assessed Comments Unknown Sex and Gender Information Value Date Recorded Sex Assigned at Not on file Legal Sex Female 3:48 AM SKIVER MACHINE OPERATOR Gender Identity Not on file Sexual Orientation Not on file documented as of this encounter Plan of Treatment Upcoming Encounters Date Type Department Care Team (Late st Contact Info) Description 05/11/2025 11:20 AM SKIVER MACHINE OPERATOR Office Visit [facility] Primary Care [address] [address] Lilian Moore MD [address] [place] [phone] 07/12/2025 3:00 PM CDT Office Visit [facility] Diabetes Care [facility] [address] [place] [address] [address] [place] [address] Pallavi Laurent, AUTOMATIC WINDER OPERATOR [address] [facility] [address] [place] [address] documented as of this encounter Visit Diagnoses Not on filedocumented in this encounter Care Teams Repair Weaver Relationship Specialty Start Date End Date Lilian Moore MD [address] [place] [phone] PCP - General Family Practice 05/07/24 documented as of this encounter
--- OUTSIDE RECORDS SUMMARY | 2025-03-10 07:48 | XMS_ITS | Encounter Summary ---
Author Organization [facility] Address [address] [place] [address] Care Team Providers Care Civil Engineer'S Aide Name Role Phone Lilian Moore MD Primary Care Provider [phone] Encounter Details Date Type Department Care Team (Latest Contact Info) Description 09/06/[address] [facility] Mikhail Arora MD [address] [place] [address] SCREENING MAMM-MAILG NEOPL-OTHER (Primary Dx) Social History Tobacco Use Types Packs/Day Years Used Date Smoking Tobacco: Never Assessed Comments Unknown Sex and Gender Information Value Date Recorded Sex Assigned at Not on file Legal Sex Female 3:48 AM MR TEACHER Gender Identity Not on file Sexual Orientation Not on file documented as of this encounter Plan of Treatment Upcoming Encounters Date Type Department Care Team (Late st Contact Info) Description 05/11/2025 11:20 AM MR TEACHER Office Visit [facility] Primary Care [address] [address] Lilian Moore MD [address] [place] [address] 07/12/2025 3:00 PM CDT Office Visit [facility] Diabetes Care [facility] [address] [place] [phone] Pallavi Laurent, POST GRADUATE INTERNSHIP [address] [facility] [address] [place] [address] documented as of this encounter Visit Diagnoses Diagnosis Other screening mammogram- Primary documented in this encounter Care Teams Civil Engineer'S Aide Relationship Specialty Start Date End Date Lilian Moore MD [address] [place] [phone] PCP - General Family Practice 05/07/24 documented as of this encounter
--- OUTSIDE RECORDS SUMMARY | 2025-03-10 07:48 | XMS_ITS | Encounter Summary ---
Author Organization [facility] Address [address] [place] [address] Care Team Providers Care Platform Loader Name Role Phone Lilian Moore MD Primary Care Provider [phone] Encounter Details Date Type Department Care Team (Late Contact Info) Description 08/03/2004 Outpatient Historical [facility] Maternal and Ground Floor S [facility] [address] [place] [address] Andre Gutierrez MD [address] [place] [address] Social History Tobacco Use Types Packs/Day Years Used Date Smoking Tobacco: Never Assessed Comments Unknown Sex and Gender Information Value Date Recorded Sex Assigned at Not on file Legal Sex Female 3:48 AM INSPECTOR EXPERIMENTAL ASSEMBLY Gender Identity Not on file Sexual Orientation Not on file documented as of this encounter Plan of Treatment Upcoming Encounters Date Type Department Care Team (Late st Contact Info) Description 05/11/2025 11:20 AM INSPECTOR EXPERIMENTAL ASSEMBLY Office Visit [facility] Primary Care [address] [address] Lilian Moore MD [facility]9 [place] [address] 07/12/2025 3:00 PM CDT Office Visit [facility] Diabetes Care [facility] [address] [place] [address] 100 [place] [phone] Pallavi Laurent, FOOD SAMPLER [address] [facility] [address] [place] [address] documented as of this encounter Visit Diagnoses Not on filedocumented in this encounter Care Teams Platform Loader Relationship Specialty Start Date End Date Lilian Moore MD [address] [place] [phone] PCP - General Family Practice 05/07/24 documented as of this encounter
--- OUTSIDE RECORDS SUMMARY | 2025-03-10 07:48 | XMS_ITS | Encounter Summary ---
Author Organization [facility] Address [address] [place] [address] Care Team Providers Care Chief Warden Name Role Phone Lilian Moore MD Primary Care Provider [phone] Encounter Details Date Type Department Care Team (Latest Contact Info) Description 08/16/2004 Outpatient Historical [facility] Mikhail Talbot MD [address] [place] [address] ELDER MULTIGRAVID-ANTEPART UM (Primary Dx) Social History Tobacco Use Types Packs/Day Years Used Date Smoking Tobacco: Never Assessed Comments Unknown Sex and Gender Information Value Date Recorded Sex Assigned at Not on file Legal Sex Female 3:48 AM RN DISEASE MANAGEMENT Gender Identity Not on file Sexual Orientation Not on file documented as of this encounter Plan of Treatment Upcoming Encounters Date Type Department Care Team (Late st Contact Info) Description 05/11/2025 11:20 AM RN DISEASE MANAGEMENT Office Visit [facility] Primary Care [address] [address] Lilian Moore MD [address] [place] [phone] 07/12/2025 3:00 PM CDT Office Visit [facility] Diabetes Care [place] [address] [address] Pallavi Laurent, ELECTRICIAN APPRENTICE [address] [facility] [address] [place] [address] documented as of this encounter Visit Diagnoses Diagnosis Elderly multigravida with antepartum condition or complication- Primary documented in this encounter Care Teams Chief Warden Relationship Specialty Start Date End Date Lilian Moore MD [address] [place] [phone] PCP - General Family Practice 05/07/24 documented as of this encounter
--- OUTSIDE RECORDS SUMMARY | 2025-03-10 07:48 | XMS_ITS | Encounter Summary ---
Author Organization [facility] Address [address] [place] [address] Care Team Providers Care Digital Media Designer Name Role Phone Lilian Moore MD Primary Care Provider [phone] Encounter Details Date Type Department Care Team (Late Contact Info) Description 09/28/2002 Outpatient Historical [facility] Maternal and Ground Floor S [facility] [address] [place] [address] Josh Foreman MD NO ADDRESS ON FILE Social History Tobacco Use Types Packs/Day Years Used Date Smoking Tobacco: Never Assessed Comments Unknown Sex and Gender Information Value Date Recorded Sex Assigned at Not on file Legal Sex Female 3:48 AM PHYSIOLOGY TEACHER Gender Identity Not on file Sexual Orientation Not on file documented as of this encounter Plan of Treatment Upcoming Encounters Date Type Department Care Team (Late Contact Info) Description 05/11/2025 11:20 AM PHYSIOLOGY TEACHER Office Visit [facility] Primary Care [address] [address] Lilian Moore MD [facility]9 [place] [address] 07/12/2025 3:00 PM CDT Office Visit [facility] Diabetes Care [place] [address] [facility] 100 [place] [address] Pallavi Laurent FNP [address] [facility] 102 [place] [address] documented as of this encounter Visit Diagnoses Not on filedocumented in this encounter Care Teams Digital Media Designer Relationship Specialty Start Date End Date Lilian Moore MD [address] [place] [phone] PCP - General Family Practice 05/07/24 documented as of this encounter
--- OUTSIDE RECORDS SUMMARY | 2025-03-10 07:48 | XMS_ITS | Encounter Summary ---
Author Organization [facility] Address [address] [place] [address] Care Team Providers Care Research Manager Name Role Phone Lilian Moore MD Primary Care Provider [phone] Encounter Details Date Type Department Care Team (Late Contact Info) Description 04/26/1998 Outpatient Historical [facility] Internal Medicine Medical [place] [facility] [address] [facility] [address] [address] Odette Porter Social History Tobacco Use Types Packs/Day Years Used Date Smoking Tobacco: Never Assessed Comments Unknown Sex and Gender Information Value Date Recorded Sex Assigned at Not on file Legal Sex Female 3:48 AM AUTO HAULAWAY DRIVER Gender Identity Not on file Sexual Orientation Not on file documented as of this encounter Plan of Treatment Upcoming Encounters Date Type Department Care Team (Late Contact Info) Description 05/11/2025 11:20 AM AUTO HAULAWAY DRIVER Office Visit [facility] Primary Care [address] [address] Lilian Moore MD [address] [place] [address] 07/12/2025 3:00 PM CDT Office Visit [facility] Diabetes Care [place] [address] [facility] 100 [place] [phone] Pallavi Laurent FNP [address] [facility] [address] [place] [phone] documented as of this encounter Visit Diagnoses Not on filedocumented in this encounter Care Teams Research Manager Relationship Specialty Start Date End Date Lilian Moore MD [facility]9 [place] [address] PCP - General Family Practice 05/07/24 documented as of this encounter
--- OUTSIDE RECORDS SUMMARY | 2025-03-10 07:48 | XMS_ITS | Encounter Summary ---
Author Organization [facility] Address [address] [place] [address] Care Team Providers Care Java Front End Web Developer Name Role Phone Lilian Moore MD Primary Care Provider [phone] Encounter Details Date Type Department Care Team (Late Contact Info) Description 08/28/2004 Outpatient Historical [facility] Maternal and Ground Floor S [facility] [address] [place] [address] Jose Humphreys DO [address] [facility] [address] [address] Social History Tobacco Use Types Packs/Day Years Used Date Smoking Tobacco: Never Assessed Comments Unknown Sex and Gender Information Value Date Recorded Sex Assigned at Not on file Legal Sex Female 3:48 AM CARD CLOTHIER Gender Identity Not on file Sexual Orientation Not on file documented as of this encounter Plan of Treatment Upcoming Encounters Date Type Department Care Team (Late Contact Info) Description 05/11/2025 11:20 AM CARD CLOTHIER Office Visit [facility] Primary Care [address] [address] Lilian Moore MD [address] [place] [phone] 07/12/2025 3:00 PM CDT Office Visit [facility] Diabetes Care [facility] [id number] [place] [address] [address] [place] [phone] Pallavi Laurent, EQUIPMENT MONITOR PHOTOTYPESETTING [address] [facility] [address] [place] [address] documented as of this encounter Visit Diagnoses Not on filedocumented in this encounter Care Teams Java Front End Web Developer Relationship Specialty Start Date End Date Lilian Moore MD [address] [place] [phone] PCP - General Family Practice 05/07/24 documented as of this encounter
--- OUTSIDE RECORDS SUMMARY | 2025-03-10 07:48 | XMS_ITS | Encounter Summary ---
Author Organization [facility] Address [address] [place] [address] Care Team Providers Care Rocket Engine Tester Name Role Phone Lilian Moore MD Primary Care Provider [phone] Encounter Details Date Type Department Care Team (Late Contact Info) Description 05/05/2004 Outpatient Historical [facility] Maternal and Ground Floor S [facility] [address] [place] [address] Andre Gutierrez MD [address] [place] [address] Social History Tobacco Use Types Packs/Day Years Used Date Smoking Tobacco: Never Assessed Comments Unknown Sex and Gender Information Value Date Recorded Sex Assigned at Not on file Legal Sex Female 3:48 AM ALTERATION HAND Gender Identity Not on file Sexual Orientation Not on file documented as of this encounter Plan of Treatment Upcoming Encounters Date Type Department Care Team (Late st Contact Info) Description 05/11/2025 11:20 AM ALTERATION HAND Office Visit [facility] Primary Care [address] [address] Lilian Moore MD [facility]9 [place] [address] 07/12/2025 3:00 PM CDT Office Visit [facility] Diabetes Care [facility] [id number] [place] [address] 100 [place] [phone] Pallavi Laurent, MATHEMATICAL ENGINEERING TECHNICIAN [address] [facility] [address] [place] [address] documented as of this encounter Visit Diagnoses Not on filedocumented in this encounter Care Teams Rocket Engine Tester Relationship Specialty Start Date End Date Lilian Moore MD [address] [place] [phone] PCP - General Family Practice 05/07/24 documented as of this encounter
--- OUTSIDE RECORDS SUMMARY | 2025-03-10 07:48 | XMS_ITS | Encounter Summary ---
Author Organization [facility] Address [address] [place] [address] Care Team Providers Care Pals Nurse Name Role Phone Lilian Moore MD Primary Care Provider [phone] Encounter Details Date Type Department Care Team (Latest Contact Info) Description 07/15/2004 Outpatient Historical [facility] Mikhail Talbot MD [address] [place] [address] [place] MULTIGRAVID-ANTEPART UM (Primary Dx) Social History Tobacco Use Types Packs/Day Years Used Date Smoking Tobacco: Never Assessed Comments Unknown Sex and Gender Information Value Date Recorded Sex Assigned at Not on file Legal Sex Female 3:48 AM BURGLAR ALARM INSPECTOR Gender Identity Not on file Sexual Orientation Not on file documented as of this encounter Plan of Treatment Upcoming Encounters Date Type Department Care Team (Late st Contact Info) Description 05/11/2025 11:20 AM BURGLAR ALARM INSPECTOR Office Visit [facility] Primary Care [address] [address] Lilian Moore MD [address] [place] [address] 07/12/2025 3:00 PM CDT Office Visit [facility] Diabetes Care [place] [address] [address] Pallavi Laurent, MEAT MARKET MANAGER [address] [facility] [address] [place] [address] documented as of this encounter Visit Diagnoses Diagnosis Elderly multigravida with antepartum condition or complication- Primary documented in this encounter Care Teams Pals Nurse Relationship Specialty Start Date End Date Lilian Moore MD [address] [place] [address] PCP - General Family Practice 05/07/24 documented as of this encounter
--- OUTSIDE RECORDS SUMMARY | 2025-03-10 07:48 | XMS_ITS | Encounter Summary ---
Author Organization [facility] Address [address] [place] [address] Care Team Providers Care Form Tamper Operator Name Role Phone Lilian Moore MD Primary Care Provider Encounter Details Date Type Department Care Team (Late Contact Info) Description 04/10/2004 Outpatient Historical [facility] Maternal and Ground Floor S [facility] [address] [place] [address] Andre Gutierrez MD [address] [place] [address] Social History Tobacco Use Types Packs/Day Years Used Date Smoking Tobacco: Never Assessed Comments Unknown Sex and Gender Information Value Date Recorded Sex Assigned at Not on file Legal Sex Female 3:48 AM FACILITY EXAMINER Gender Identity Not on file Sexual Orientation Not on file documented as of this encounter Plan of Treatment Upcoming Encounters Date Type Department Care Team (Late st Contact Info) Description 05/11/2025 11:20 AM FACILITY EXAMINER Office Visit [facility] Primary Care [address] [address] Lilian Moore MD [facility]9 [place] [address] 07/12/2025 3:00 PM CDT Office Visit [facility] Diabetes Care [facility] [phone] [place] [address] 100 [place] [phone] Pallavi Laurent, VENETIAN BLIND TAPE CUTTER [address] [facility] [place] [place] [address] documented as of this encounter Visit Diagnoses Not on filedocumented in this encounter Care Teams Form Tamper Operator Relationship Specialty Start Date End Date Lilian Moore MD [address] [place] [phone] PCP - General Family Practice 05/07/24 documented as of this encounter
--- OUTSIDE RECORDS SUMMARY | 2025-03-10 07:48 | XMS_ITS | Encounter Summary ---
Author Organization [facility] Address [address] [place] [address] Care Team Providers Care Custom Grinder Name Role Phone Lilian Moore MD Primary Care Provider [phone] Encounter Details Date Type Department Care Team (Late st Contact Info) Description 09/25/2004 Outpatient Historical [facility] Maternal and Ground Floor S [facility] [address] [place] [address] Elliot Perez MD [address] [facility] [address] [place] [address] Social History Tobacco Use Types Packs/Day Years Used Date Smoking Tobacco: Never Assessed Comments Unknown Sex and Gender Information Value Date Recorded Sex Assigned at Not on file Legal Sex Female 3:48 AM COMPUTER DISCOVERY TEACHER Gender Identity Not on file Sexual Orientation Not on file documented as of this encounter Plan of Treatment Upcoming Encounters Date Type Department Care Team (Late st Contact Info) Description 05/11/2025 11:20 AM COMPUTER DISCOVERY TEACHER Office Visit [facility] Primary Care [address] [address] Lilian Moore MD [facility] [place] [address] 07/12/2025 3:00 PM CDT Office Visit [facility] Diabetes Care [place] [address] [place] [address] 100 [place] [phone] Pallavi Laurent, LEAD PROJECT ENGINEER [address] [facility] [address] [place] [address] documented as of this encounter Visit Diagnoses Not on filedocumented in this encounter Care Teams Custom Grinder Relationship Specialty Start Date End Date Lilian Moore MD [address] [place] [phone] PCP - General Family Practice 05/07/24 documented as of this encounter
--- OUTSIDE RECORDS SUMMARY | 2025-03-10 07:48 | XMS_ITS | Encounter Summary ---
Author Organization [facility] Address [address] [place] [address] Care Team Providers Care Store Hand Name Role Phone Lilian Moore MD Primary Care Provider [phone] Encounter Details Date Type Department Care Team (Latest Contact Info) Description 04/26/1998 Outpatient Historical [facility] Odette Beal Other malaise and fatigue (Primary Dx) Social History Tobacco Use Types Packs/Day Years Used Date Smoking Tobacco: Never Assessed Comments Unknown Sex and Gender Information Value Date Recorded Sex Assigned at Not on file Legal Sex Female 3:48 AM CROP OR GRAIN FARMWORKER Gender Identity Not on file Sexual Orientation Not on file documented as of this encounter Plan of Treatment Upcoming Encounters Date Type Department Care Team (Late st Contact Info) Description 05/11/2025 11:20 AM CROP OR GRAIN FARMWORKER Office Visit [facility] Primary Care [facility] [address] [place] [address] Lilian Moore MD [address] [place] [address] 07/12/2025 3:00 PM CDT Office Visit [facility] [address] [facility] [address] [place] [address] Pallavi Laurent FNP [address] [facility] [address] [place] [address] documented as of this encounter Visit Diagnoses Diagnosis Other malaise and fatigue- Primary documented in this encounter Care Teams Store Hand Relationship Specialty Start Date End Date Lilian Moore MD [address] [place] [address] PCP - General Family Practice 05/07/24 documented as of this encounter
--- OUTSIDE RECORDS SUMMARY | 2025-03-10 07:48 | XMS_ITS | Encounter Summary ---
Author Organization [facility] Address [address] [place] [address] Care Team Providers Care Consulting Services Manager Name Role Phone Lilian Moore MD Primary Care Provider [phone] Encounter Details Date Type Department Care Team (Late Contact Info) Description 03/07/1999 Outpatient Historical [facility] [place] A [facility] [address] [facility] [address] [address] Odette Porter Social History Tobacco Use Types Packs/Day Years Used Date Smoking Tobacco: Never Assessed Comments Unknown Sex and Gender Information Value Date Recorded Sex Assigned at Not on file Legal Sex Female 3:48 AM SURGICAL CODER Gender Identity Not on file Sexual Orientation Not on file documented as of this encounter Plan of Treatment Upcoming Encounters Date Type Department Care Team (Late Contact Info) Description 05/11/2025 11:20 AM SURGICAL CODER Office Visit [facility] Primary Care [address] [address] Lilian Moore MD [address] [place] [address] 07/12/2025 3:00 PM CDT Office Visit [facility] Diabetes Care [place] [address] [facility] 100 [place] [phone] Pallavi Laurent FNP [address] [facility] [address] [place] [phone] documented as of this encounter Visit Diagnoses Not on filedocumented in this encounter Care Teams Consulting Services Manager Relationship Specialty Start Date End Date Lilian Moore MD [facility]9 [place] [address] PCP - General Family Practice 05/07/24 documented as of this encounter
--- OUTSIDE RECORDS SUMMARY | 2025-03-10 07:48 | XMS_ITS | Encounter Summary ---
Author Organization [facility] Address [address] [place] [address] Care Team Providers Care Mortgage Loan Processing Clerk Name Role Phone Lilian Moore MD Primary Care Provider [phone] Encounter Details Date Type Department Care Team (Late Contact Info) Description 09/14/2004 Outpatient Historical [facility] Maternal and Ground Floor S [facility] [address] [place] [address] Andre Gutierrez MD [address] [place] [address] Social History Tobacco Use Types Packs/Day Years Used Date Smoking Tobacco: Never Assessed Comments Unknown Sex and Gender Information Value Date Recorded Sex Assigned at Not on file Legal Sex Female 3:48 AM MANAGER ACTION Gender Identity Not on file Sexual Orientation Not on file documented as of this encounter Plan of Treatment Upcoming Encounters Date Type Department Care Team (Late st Contact Info) Description 05/11/2025 11:20 AM MANAGER ACTION Office Visit [facility] Primary Care [address] [address] Lilian Moore MD [facility]9 [place] [address] 07/12/2025 3:00 PM CDT Office Visit [facility] Diabetes Care [facility] [address] [place] [address] 100 [place] [phone] Pallavi Laurent, ACCESS SERVICES ASSISTANT [address] [facility] [address] [place] [address] documented as of this encounter Visit Diagnoses Not on filedocumented in this encounter Care Teams Mortgage Loan Processing Clerk Relationship Specialty Start Date End Date Lilian Moore MD [address] [place] [address] PCP - General Family Practice 05/07/24 documented as of this encounter
--- OUTSIDE RECORDS SUMMARY | 2025-03-10 07:48 | XMS_ITS | Encounter Summary ---
Author Organization [facility] Address [address] [place] [address] Care Team Providers Care Casing In Line Feeder Name Role Phone Lilian Moore MD Primary Care Provider [phone] Encounter Details Date Type Department Care Team (Latest Contact Info) Description 09/17/[address] Outpatient [address] [facility] Mikhail Talbot MD [address] [place] [address] [place] MULTIGRAVID-ANTEPART UM (Primary Dx) Social History Tobacco Use Types Packs/Day Years Used Date Smoking Tobacco: Never Assessed Comments Unknown Sex and Gender Information Value Date Recorded Sex Assigned at Not on file Legal Sex Female 3:48 AM TRAFFIC AGENT Gender Identity Not on file Sexual Orientation Not on file documented as of this encounter Plan of Treatment Upcoming Encounters Date Type Department Care Team (Late st Contact Info) Description 05/11/2025 11:20 AM TRAFFIC AGENT Office Visit [facility] Primary Care [address] [address] Lilian Moore MD [address] [place] [address] 07/12/2025 3:00 PM CDT Office Visit [facility] Diabetes Care [place] [address] [address] Pallavi Laurent, SECTION LEADER [address] [facility] [address] [place] [address] documented as of this encounter Visit Diagnoses Diagnosis Elderly multigravida with antepartum condition or complication- Primary documented in this encounter Care Teams Casing In Line Feeder Relationship Specialty Start Date End Date Lilian Moore MD [address] [place] [address] PCP - General Family Practice 05/07/24 documented as of this encounter
--- OUTSIDE RECORDS SUMMARY | 2025-03-10 07:48 | XMS_ITS | Encounter Summary ---
Author Organization [facility] Address [address] [place] [address] Care Team Providers Care Flight Attendant/Inflight Supervisor Name Role Phone Lilian Moore MD Primary Care Provider [phone] Encounter Details Date Type Department Care Team (Late st Contact Info) Description 09/07/2004 Outpatient Historical [facility] Maternal and Ground Floor S [facility] [address] [place] [address] Elliot Perez MD [address] [facility] [address] [place] [address] Social History Tobacco Use Types Packs/Day Years Used Date Smoking Tobacco: Never Assessed Comments Unknown Sex and Gender Information Value Date Recorded Sex Assigned at Not on file Legal Sex Female 3:48 AM LIFE COACH Gender Identity Not on file Sexual Orientation Not on file documented as of this encounter Plan of Treatment Upcoming Encounters Date Type Department Care Team (Late st Contact Info) Description 05/11/2025 11:20 AM LIFE COACH Office Visit [facility] Primary Care [address] [address] Lilian Moore MD [facility]9 [place] [address] 07/12/2025 3:00 PM CDT Office Visit [facility] Diabetes Care [place] [phone] [place] [address] 100 [place] [phone] Pallavi Laurent, EQUALIZING SAW OPERATOR [address] [facility] [address]INA [address] [place] [address] documented as of this encounter Visit Diagnoses Not on filedocumented in this encounter Care Teams Flight Attendant/Inflight Supervisor Relationship Specialty Start Date End Date Lilian Moore MD [address] [place] [phone] PCP - General Family Practice 05/07/24 documented as of this encounter
--- OUTSIDE RECORDS SUMMARY | 2025-03-10 07:48 | XMS_ITS | Encounter Summary ---
Author Organization [facility] Address [address] [place] [address] Care Team Providers Care Senior Advisor Name Role Phone Lilian Moore MD Primary Care Provider [phone] Encounter Details Date Type Department Care Team (Late Contact Info) Description 05/05/2004 Outpatient Historical [facility] [place] Maternal and Ground Floor S [facility] [address] [place] [address] Andre Gutierrez MD [address] [place] [address] Social History Tobacco Use Types Packs/Day Years Used Date Smoking Tobacco: Never Assessed Comments Unknown Sex and Gender Information Value Date Recorded Sex Assigned at Not on file Legal Sex Female 3:48 AM EMPLOYEE SERVICES MANAGER Gender Identity Not on file Sexual Orientation Not on file documented as of this encounter Plan of Treatment Upcoming Encounters Date Type Department Care Team (Late st Contact Info) Description 05/11/2025 11:20 AM EMPLOYEE SERVICES MANAGER Office Visit [facility] Primary Care [address] [address] Lilian Moore MD [facility]9 [place] [address] 07/12/2025 3:00 PM CDT Office Visit [facility] Diabetes Care [facility] [address] [place] [address] 100 [place] [phone] Pallavi Laurent, PLASTICS FITTER [address] [facility] [address] [place] [address] documented as of this encounter Visit Diagnoses Not on filedocumented in this encounter Care Teams Senior Advisor Relationship Specialty Start Date End Date Lilian Moore MD [address] [place] [address] PCP - General Family Practice 05/07/24 documented as of this encounter
--- OUTSIDE RECORDS SUMMARY | 2025-03-10 07:48 | XMS_ITS | Encounter Summary ---
Author Organization [facility] Address [address] [place] [address] Care Team Providers Care Aircraft Mechanic Armament Name Role Phone Lilian Moore MD Primary Care Provider [phone] Encounter Details Date Type Department Care Team (Latest Contact Info) Description 07/02/2002 Outpatient Historical [facility] Mikhail Talbot MD [address] [place] [address] OTHER CURR COND-ANTEPARTUM (Primary Dx) Social History Tobacco Use Types Packs/Day Years Used Date Smoking Tobacco: Never Assessed Comments Unknown Sex and Gender Information Value Date Recorded Sex Assigned at Not on file Legal Sex Female 3:48 AM POLISHER APPRENTICE Gender Identity Not on file Sexual Orientation Not on file documented as of this encounter Plan of Treatment Upcoming Encounters Date Type Department Care Team (Late st Contact Info) Description 05/11/2025 11:20 AM POLISHER APPRENTICE Office Visit [facility] Primary Care [address] [address] Lilian Moore MD [address] [place] [address] 07/12/2025 3:00 PM CDT Office Visit [facility] Diabetes Care [place] [address] [address] Pallavi Laurent, BAIL AGENT [address] [facility] [address] [place] [address] documented as of this encounter Visit Diagnoses Diagnosis Other current maternal conditions classifiable elsewhere, antepartum- Primary documented in this encounter Care Teams Aircraft Mechanic Armament Relationship Specialty Start Date End Date Lilian Moore MD [address] [place] [address] PCP - General Family Practice 05/07/24 documented as of this encounter
--- OUTSIDE RECORDS SUMMARY | 2025-03-10 07:48 | XMS_ITS | Encounter Summary ---
Author Organization [facility] Address [address] [place] [address] Care Team Providers Care Credit Specialist Name Role Phone Lilian Moore MD Primary Care Provider [phone] Encounter Details Date Type Department Care Team (Latest Contact Info) Description 09/15/2002 Outpatient Historical [facility] O[facility]BrienMikhail MD [address] [place] [address] BONE DISORDER-ANTEPARTUM (Primary Dx) Social History Tobacco Use Types Packs/Day Years Used Date Smoking Tobacco: Never Assessed Comments Unknown Sex and Gender Information Value Date Recorded Sex Assigned at Not on file Legal Sex Female 3:48 AM NETWORK ADMINISTRATOR Gender Identity Not on file Sexual Orientation Not on file documented as of this encounter Plan of Treatment Upcoming Encounters Date Type Department Care Team (Late st Contact Info) Description 05/11/2025 11:20 AM NETWORK ADMINISTRATOR Office Visit [facility] Primary Care [address] [address] Lilian Moore MD [address] [place] [address] 07/12/2025 3:00 PM CDT Office Visit [facility] Diabetes Care [place] [address] [address] Pallavi Laurent, ASPHALT PAVING MACHINE OPERATOR [address] [facility] [address] [place] [address] documented as of this encounter Visit Diagnoses Diagnosis Bone and joint disorders of maternal back, pelvis, and lower limbs, antepartum(648.73)- Primary Bone and joint disorders of maternal back, pelvis, and lower limbs, antepartum documented in this encounter Care Teams Credit Specialist Relationship Specialty Start Date End Date Lilian Moore MD [facility]9 [place] [phone] PCP - General Family Practice 05/07/24 documented as of this encounter
--- OUTSIDE RECORDS SUMMARY | 2025-03-10 07:48 | XMS_ITS | Encounter Summary ---
Author Organization [facility] Address [address] [place] [address] Care Team Providers Care Network Internship Name Role Phone Lilian Moore MD Primary Care Provider [phone] Encounter Details Date Type Department Care Team (Late st Contact Info) Description 07/03/2004 Outpatient Historical [facility] [place] [facility] Maternal and Ground Floor S [facility] [address] [place] [address] Elliot Perez MD [address] [facility] [address] [place] [address] Social History Tobacco Use Types Packs/Day Years Used Date Smoking Tobacco: Never Assessed Comments Unknown Sex and Gender Information Value Date Recorded Sex Assigned at Not on file Legal Sex Female 3:48 AM FEATURE WRITER Gender Identity Not on file Sexual Orientation Not on file documented as of this encounter Plan of Treatment Upcoming Encounters Date Type Department Care Team (Late st Contact Info) Description 05/11/2025 11:20 AM FEATURE WRITER Office Visit [facility] Primary Care [address] [address] Lilian Moore MD [facility]9 [place] [address] 07/12/2025 3:00 PM CDT Office Visit [facility] Diabetes Care [place] [address] [place] [address] 100 [place] [phone] Pallavi Laurent, DISPUTE COORDINATOR [address] [facility] ROSALINA [address] [place] [address] documented as of this encounter Visit Diagnoses Not on filedocumented in this encounter Care Teams Network Internship Relationship Specialty Start Date End Date Lilian Moore MD [address] [place] [phone] PCP - General Family Practice 05/07/24 documented as of this encounter
--- OUTSIDE RECORDS SUMMARY | 2025-03-10 07:48 | XMS_ITS | Encounter Summary ---
Author Organization [facility] Address [address] [place] [address] Care Team Providers Care State Director Name Role Phone Lilian Moore MD Primary Care Provider [phone] Encounter Details Date Type Department Care Team (Late Contact Info) Description 06/21/2004 Outpatient Historical [facility] Maternal and Ground Floor S [facility] [address] [place] [address] Andre Gutierrez MD [address] [place] [address] Social History Tobacco Use Types Packs/Day Years Used Date Smoking Tobacco: Never Assessed Comments Unknown Sex and Gender Information Value Date Recorded Sex Assigned at Not on file Legal Sex Female 3:48 AM FREIGHT TEAM ASSOCIATE Gender Identity Not on file Sexual Orientation Not on file documented as of this encounter Plan of Treatment Upcoming Encounters Date Type Department Care Team (Late st Contact Info) Description 05/11/2025 11:20 AM FREIGHT TEAM ASSOCIATE Office Visit [facility] Primary Care [address] [address] Lilian Moore MD [facility]9 [place] [address] 07/12/2025 3:00 PM CDT Office Visit [facility] Diabetes Care [facility] [phone] [place] [address] 100 [place] [phone] Pallavi Laurent, CREWMAN MAIN BATTLE TANK [address] [facility] ROSALINA [address] [place] [address] documented as of this encounter Visit Diagnoses Not on filedocumented in this encounter Care Teams State Director Relationship Specialty Start Date End Date Lilian Moore MD [address] [place] [phone] PCP - General Family Practice 05/07/24 documented as of this encounter
--- OUTSIDE RECORDS SUMMARY | 2025-03-10 07:48 | XMS_ITS | Encounter Summary ---
Author Organization [facility] Address [address] [place] [address] Care Team Providers Care Rand Sewer Name Role Phone Lilian Moore MD Primary Care Provider [phone] Encounter Details Date Type Department Care Team (Late Contact Info) Description 09/11/2004 Outpatient Historical [facility] Maternal and Ground Floor S [facility] [address] [place] [phone] Josh Foreman MD NO ADDRESS ON FILE Social History Tobacco Use Types Packs/Day Years Used Date Smoking Tobacco: Never Assessed Comments Unknown Sex and Gender Information Value Date Recorded Sex Assigned at Not on file Legal Sex Female 3:48 AM BOX SORTER Gender Identity Not on file Sexual Orientation Not on file documented as of this encounter Plan of Treatment Upcoming Encounters Date Type Department Care Team (Late Contact Info) Description 05/11/2025 11:20 AM BOX SORTER Office Visit [facility] Primary Care [address] [address] Lilian Moore MD [facility] [place] [address] 07/12/2025 3:00 PM CDT Office Visit [facility] Diabetes Care [place] [address] [facility] [address] [place] [address] Pallavi Laurent FNP [address] [facility] [address] [place] [address] documented as of this encounter Visit Diagnoses Not on filedocumented in this encounter Care Teams Rand Sewer Relationship Specialty Start Date End Date Lilian Moore MD [address] [place] [phone] PCP - General Family Practice 05/07/24 documented as of this encounter
--- OUTSIDE RECORDS SUMMARY | 2025-03-10 07:48 | XMS_ITS | Encounter Summary ---
Author Organization [facility] Address [address] [place] [address] Care Team Providers Care Lye Peel Operator Name Role Phone Lilian Moore MD Primary Care Provider [phone] Encounter Details Date Type Department Care Team (Late st Contact Info) Description 08/03/2002 Outpatient Historical [facility] Mikhail Talbot MD [address] [place] [address] Social History Tobacco Use Types Packs/Day Years Used Date Smoking Tobacco: Never Assessed Comments Unknown Sex and Gender Information Value Date Recorded Sex Assigned at Not on file Legal Sex Female 3:48 AM HOME STEREO EQUIPMENT INSTALLER Gender Identity Not on file Sexual Orientation Not on file documented as of this encounter Plan of Treatment Upcoming Encounters Date Type Department Care Team (Late st Contact Info) Description 05/11/2025 11:20 AM HOME STEREO EQUIPMENT INSTALLER Office Visit [facility] Primary Care [address] [address] Lilian Moore MD [address] [place] [phone] 07/12/2025 3:00 PM CDT Office Visit [facility] Diabetes Care [facility] [address] [address] Pallavi Laurent, [facility] [address] [facility] [address] [place] [address] documented as of this encounter Visit Diagnoses Not on filedocumented in this encounter Care Teams Lye Peel Operator Relationship Specialty Start Date End Date Lilian Moore MD [address] [place] [phone] PCP - General Family Practice 05/07/24 documented as of this encounter
--- OUTSIDE RECORDS SUMMARY | 2025-03-10 07:48 | XMS_ITS | Encounter Summary ---
Author Organization [facility] Address [address] [place] [address] Care Team Providers Care Transportation Security Officer Name Role Phone Lilian Moore MD Primary Care Provider [phone] Encounter Details Date Type Department Care Team (Late Contact Info) Description 09/19/2004 Outpatient Historical [facility] Maternal and Ground Floor S [facility] [address] [place] [address] Elizabeth Gresham MD [address] [place] [address] Social History Tobacco Use Types Packs/Day Years Used Date Smoking Tobacco: Never Assessed Comments Unknown Sex and Gender Information Value Date Recorded Sex Assigned at Not on file Legal Sex Female 3:48 AM SODA CLERK Gender Identity Not on file Sexual Orientation Not on file documented as of this encounter Plan of Treatment Upcoming Encounters Date Type Department Care Team (Late st Contact Info) Description 05/11/2025 11:20 AM SODA CLERK Office Visit [facility] Primary Care [address] [address] Lilian Moore MD [address] [place] [phone] 07/12/2025 3:00 PM CDT Office Visit [facility] Diabetes Care [facility] [id number] [place] [address] [address] [place] [phone] Pallavi Laurent, UPSTAIRS MAID [address] [facility] [address] [place] [address] documented as of this encounter Visit Diagnoses Not on filedocumented in this encounter Care Teams Transportation Security Officer Relationship Specialty Start Date End Date Lilian Moore MD [address] [place] [phone] PCP - General Family Practice 05/07/24 documented as of this encounter
--- OUTSIDE RECORDS SUMMARY | 2025-03-10 07:48 | XMS_ITS | Encounter Summary ---
Author Organization [facility] Address [address] [place] [address] Care Team Providers Care Lining Mechanic Name Role Phone Lilian Moore MD Primary Care Provider [phone] Encounter Details Date Type Department Care Team (Latest Contact Info) Description 09/26/2002 Inpatient Historical [facility] Jude Corey MD [address] [place] [address] Mikhail Talbto MD [address] [place], [place] [address] [place] [address] NENO RUPT MEMBRAN-DELIVERED (Primary Dx) Social History Tobacco Use Types Packs/Day Years Used Date Smoking Tobacco: Never Assessed Comments Unknown Sex and Gender Information Value Date Recorded Sex Assigned at Not on file Legal Sex Female 3:48 AM PROFESSOR CRIMINAL JUSTICE Gender Identity Not on file Sexual Orientation Not on file documented as of this encounter Plan of Treatment Upcoming Encounters Date Type Department Care Team (Late st Contact Info) Description 05/11/2025 11:20 AM PROFESSOR CRIMINAL JUSTICE Office Visit [address] [address] Lilian Moore MD [address] [place] [phone] 07/12/2025 3:00 PM CDT Office Visit [facility] Diabetes Care [place] [address] [facility] [place] [address] [place] [address] Pallavi Laurent, DRAFTING LAYOUT WORKER [address] [facility] [place] [address] [place] [address] documented as of this encounter Visit Diagnoses Diagnosis Premature rupture of membranes in , delivered- Primary documented in this encounter Care Teams Lining Mechanic Relationship Specialty Start Date End Date Lilian Moore MD [address] [place] [phone] PCP - General Family Practice 05/07/24 documented as of this encounter
--- OUTSIDE RECORDS SUMMARY | 2025-03-10 07:48 | XMS_ITS | Encounter Summary ---
Author Organization [facility] Address [address] [place] [address] Care Team Providers Care Anesthesiology Physician Assistant Name Role Phone Lilian Moore MD Primary Care Provider Encounter Details Date Type Department Care Team (Late Contact Info) Description 09/21/2004 Outpatient Historical [facility] Maternal and Ground Floor S [facility] [address] [place] [address] Elizabeth Gresham MD [address] [place] [address] Social History Tobacco Use Types Packs/Day Years Used Date Smoking Tobacco: Never Assessed Comments Unknown Sex and Gender Information Value Date Recorded Sex Assigned at Not on file Legal Sex Female 3:48 AM CENTRAL OFFICE SUPERVISOR Gender Identity Not on file Sexual Orientation Not on file documented as of this encounter Plan of Treatment Upcoming Encounters Date Type Department Care Team (Late st Contact Info) Description 05/11/2025 11:20 AM CENTRAL OFFICE SUPERVISOR Office Visit [facility] Primary Care [address] [address] Lilian Moore MD [address] [place] [phone] 07/12/2025 3:00 PM CDT Office Visit [facility] Diabetes Care [facility] [phone] [place] [address] [address] [place] [phone] Pallavi Laurent, FOUNDER AND CHIEF TECHNICAL OFFICER [address] [facility] [address] [place] [address] documented as of this encounter Visit Diagnoses Not on filedocumented in this encounter Care Teams Anesthesiology Physician Assistant Relationship Specialty Start Date End Date Lilian Moore MD [address] [place] [phone] PCP - General Family Practice 05/07/24 documented as of this encounter
--- OUTSIDE RECORDS SUMMARY | 2025-03-10 07:49 | XMS_ITS | Encounter Summary ---
Author Organization [facility] Address [address] [place] [address] Care Team Providers Care Flatbed Owner Operator Name Role Phone Lilian Moore MD Primary Care Provider [phone] Encounter Details Date Type Department Care Team (Late Contact Info) Description 07/02/2002 Outpatient Historical [facility] Maternal and Ground Floor S [facility] [address] [place] [address] Andre Gutierrez MD [address] [place] [address] Social History Tobacco Use Types Packs/Day Years Used Date Smoking Tobacco: Never Assessed Comments Unknown Sex and Gender Information Value Date Recorded Sex Assigned at Not on file Legal Sex Female 3:48 AM PHARMACY AIDE Gender Identity Not on file Sexual Orientation Not on file documented as of this encounter Plan of Treatment Upcoming Encounters Date Type Department Care Team (Late st Contact Info) Description 05/11/2025 11:20 AM PHARMACY AIDE Office Visit [facility] Primary Care [address] [address] Lilian Moore MD [facility]9 [place] [address] 07/12/2025 3:00 PM CDT Office Visit [facility] Diabetes Care [facility] [phone] [place] [address] [address] [place] [phone] Pallavi Laurent, NETWORK ASSOCIATE [address] [facility] [address] [place] [address] documented as of this encounter Visit Diagnoses Not on filedocumented in this encounter Care Teams Flatbed Owner Operator Relationship Specialty Start Date End Date Lilian Moore MD [address] [place] [phone] PCP - General Family Practice 05/07/24 documented as of this encounter
--- OUTSIDE RECORDS SUMMARY | 2025-03-10 07:49 | XMS_ITS | Encounter Summary ---
Author Organization [facility] Address [address] [place] [address] Care Team Providers Care Degreasing Solution Reclaimer Name Role Phone Lilian Moore MD Primary Care Provider [phone] Encounter Details Date Type Department Care Team (Late st Contact Info) Description 09/20/2000 Emergency [facility] Kemal Jhvaeri Er, Authorized P NO ADDRESS ON FILE Closed fracture of base of skull without mention of intracranial injury, no loss of consciousness (Primary Dx) Social History Tobacco Use Types Packs/Day Years Used Date Smoking Tobacco: Never Assessed Comments Unknown Sex and Gender Information Value Date Recorded Sex Assigned at Not on file Legal Sex Female 3:48 AM FINANCE BUSINESS PARTNER Gender Identity Not on file Sexual Orientation Not on file documented as of this encounter Plan of Treatment Upcoming Encounters Date Type Department Care Team (Late st Contact Info) Description 05/11/2025 11:20 AM FINANCE BUSINESS PARTNER Office Visit [facility] Primary Care [address] [address] Lilian Moore MD [address] [place] [phone] 07/12/2025 3:00 PM CDT Office Visit [facility] Diabetes Care [facility] [address] [facility] [address] [place] [address] Pallavi Laurent, CAR [address] [facility] [address] [place] [address] documented as of this encounter Visit Diagnoses Diagnosis Closed fracture of base of skull without mention of intracranial injury, no loss of consciousness- Primary documented in this encounter Care Teams Degreasing Solution Reclaimer Relationship Specialty Start Date End Date Lilian Moore MD [address] [place] [phone] PCP - General Family Practice 05/07/24 documented as of this encounter
--- OUTSIDE RECORDS SUMMARY | 2025-03-10 07:49 | XMS_ITS | Encounter Summary ---
Author Organization [facility] Address [address] [place] [address] Care Team Providers Care Multiple Resaw Operator Name Role Phone Lilian Moore MD Primary Care Provider [phone] Encounter Details Date Type Department Care Team (Latest Contact Info) Description 09/30/2004 Inpatient Historical [facility] PATIENT IN A BED Jude Corey MD [address] [place] [address] Mikhail Talbot MD [address] [place], [place] [address] [place] [address] PREV DELIVERY NOS-DELIVER (Primary Dx) Social History Tobacco Use Types Packs/Day Years Used Date Smoking Tobacco: Never Assessed Comments Unknown Sex and Gender Information Value Date Recorded Sex Assigned at Not on file Legal Sex Female 3:48 AM DRAMA THERAPIST Gender Identity Not on file Sexual Orientation Not on file documented as of this encounter Plan of Treatment Upcoming Encounters Date Type Department Care Team (Late st Contact Info) Description 05/11/2025 11:20 AM DRAMA THERAPIST Office Visit [address] [address] Lilian Moore MD [address] [place] [phone] 07/12/2025 3:00 PM CDT Office Visit [facility] Diabetes Care [place] [address] [facility] [address] [place] [address] Mehran Pallavi Cristin, PAPIER MACHE' MOLDER [address] [facility] [address] [place] [address] documented as of this encounter Procedures Procedure Name Priority Date/Time Associated Diagnosis Comments CBC WITH DIFFERENTIAL Routine 09/30/2004 3:20 PM CDT CBC WITH DIFFERENTIAL Routine 09/30/2004 3:20 PM CDT documented in this encounter Results * (ABNORMAL) CBC WITH DIFFERENTIAL (09/30/2004 3:20 PM CDT) NEUTROPHIL ABSOLUTE 12.01(H) 1.90 - 7.00 K/uL INTERFACE SYSTEM LYMPHOCYTE ABSOLUTE 1.24 0.70 - 4.50 K/uL INTERFACE SYSTEM MONOCYTE ABSOLUTE 0.55 0.10 - 1.30 K/uL INTERFACE SYSTEM EOSINOPHIL ABSOLUTE 0.00 0.00 - 0.70 K/uL INTERFACE SYSTEM BASOPHILS ABSOLUTE 0.00 0.00 - 0.20 K/uL INTERFACE SYSTEM NEUTROPHILS, SEG 84(H) 45 - 70 % INT ERFACE SYSTEM BANDS 3 0 - 5 % INTERFACE SYSTEM LYMPHOCYTES 9(L) 16 - 45 % INTERFAC E SYSTEM MONOCYTES 4 3 - 13 % INTERFACE SYSTEM EOSINOPHILS 0 0 - 7 % INTERFAC E SYSTEM BASOPHILS 0 0 - 2 % INTERFACE SYSTEM PLATELET EST. Normal Normal INTERF SOY SYSTEM ANISOCYTOSIS Slight INTERFA CE SYSTEM POLYCHROMASIA Slight INTERF SOY SYSTEM 09/30/2004 3:20 PM CDT Mikhail Talbot MD HEMATOLOGY ORDERABLES Final Result INTERFACE SYSTEM Refer to clinic/hospital department * (ABNORMAL) CBC WITH DIFFERENTIAL (09/30/2004 3:20 PM CDT) WBC 13.8(H) 4.0 - 9.8 K/uL INTERFACE SYSTEM RBC 3.96 3.90 - 4.90 M/uL INTERFACE SYSTEM HEMOGLOBIN 10.8(L) 11.8 - 14.8 g/dL INTERFACE SYSTEM HEMATOCRIT 33.4(L) 35.5 - 44.0 % INTERFACE SYSTEM MCV 84.3 82.0 - 99.0 fL INTERFACE SYSTEM MCH 27.3 27.2 - 32.6 pg INTERFACE SYSTEM MCHC 32.3 31.5 - 35.5 % INTERFACE SYSTEM RDW 16.3(H) 11.5 - 14.5 % INTERFACE SYSTEM RDW-STDEV 49.9(H) 37.1 - 48.7 fL INTERFACE SYSTEM PLATELETS 275 140 - 350 K/uL INTERFACE SYSTEM MPV 10.4 9.3 - 12.4 fL INTERFACE SYSTEM 09/30/2004 3:20 PM CDT Mikhail Talbot MD HEMATOLOGY ORDERABLES Final Result INTERFACE SYSTEM Refer to clinic/hospital department documented in this encounter Visit Diagnoses Diagnosis Previous delivery, delivered, with or without mention of antepartum condition- Primary documented in this encounter Care Teams Multiple Resaw Operator Relationship Specialty Start Date End Date Lilian Moore MD [address] [place] [phone] PCP - General Family Practice 05/07/24 documented as of this encounter
--- OUTSIDE RECORDS SUMMARY | 2025-03-10 07:49 | XMS_ITS | Encounter Summary ---
Author Organization [facility] Address [address] [place] [address] Care Team Providers Care Concrete Worker Name Role Phone Lilian Moore MD Primary Care Provider [phone] Encounter Details Date Type Department Care Team (Latest Contact Info) Description 10/23/1999 Inpatient Historical HIS PATIENT IN A BED Kain Hammond MD NO ADDRESS ON FILE Mikhail Talbot MD [address] [place] [address] Delayed delivery after spontaneous or unspecified rupture of membranes, delivered (Primary Dx) Social History Tobacco Use Types Packs/Day Years Used Date Smoking Tobacco: Never Assessed Comments Unknown Sex and Gender Information Value Date Recorded Sex Assigned at Not on file Legal Sex Female 3:48 AM OIL EXPELLER OPERATOR Gender Identity Not on file Sexual Orientation Not on file documented as of this encounter Plan of Treatment Upcoming Encounters Date Type Department Care Team (Late st Contact Info) Description 05/11/2025 11:20 AM OIL EXPELLER OPERATOR Office Visit [facility] Primary Care [address] [address] Lilian Moore MD [address] [place] [phone] 07/12/2025 3:00 PM CDT Office Visit [facility] Diabetes [facility] [phone] [place] [address] [address] [place] [phone] Pallavi Laurent, FINISH CARPENTER [address] [facility] [address] [place] [address] documented as of this encounter Visit Diagnoses Diagnosis Delayed delivery after spontaneous or unspecified rupture of membranes, delivered- Primary documented in this encounter Care Teams Concrete Worker Relationship Specialty Start Date End Date Lilian Moore MD [address] [place] [phone] PCP - General Family Practice 05/07/24 documented as of this encounter
--- OUTSIDE RECORDS SUMMARY | 2025-03-10 07:49 | XMS_ITS | Encounter Summary ---
Author Organization [facility] Address [address] [place] [address] Care Team Providers Care Pond Supervisor Name Role Phone Lilian Moore MD Primary Care Provider [phone] Encounter Details Date Type Department Care Team (Late st Contact Info) Description 12/20/2004 Outpatient Historical [facility] Internal Medicine Medical [place] [facility] [address] [phone] Robert Magana MD [address] [place] [address] Social History Tobacco Use Types Packs/Day Years Used Date Smoking Tobacco: Never Assessed Comments Unknown Sex and Gender Information Value Date Recorded Sex Assigned at Not on file Legal Sex Female 3:48 AM ESTATE PLANNING ATTORNEY Gender Identity Not on file Sexual Orientation Not on file documented as of this encounter Plan of Treatment Upcoming Encounters Date Type Department Care Team (Late st Contact Info) Description 05/11/2025 11:20 AM ESTATE PLANNING ATTORNEY Office Visit [facility] Primary Care [address] [address] Lilian Moore MD [address] [place] [phone] 07/12/2025 3:00 PM CDT Office Visit [facility] Diabetes [facility] [phone] [place] [address] [address] [place] [phone] Pallavi Laurent, HERB DOCTOR [address] [facility] [address] [place] [address] documented as of this encounter Visit Diagnoses Not on filedocumented in this encounter Care Teams Pond Supervisor Relationship Specialty Start Date End Date Lilian Moore MD [address] [place] [phone] PCP - General Family Practice 05/07/24 documented as of this encounter
--- OUTSIDE RECORDS SUMMARY | 2025-03-10 07:49 | XMS_ITS | Clinical Summary ---
Author Organization [facility] Address [address] [facility] [place] [address] Care Team Providers Care Senior Customer Service Representative Name Role Phone Yaima Shea MD Primary Care Provider [phone] Source Comments [facility],non-owned Affiliates and Associated Physician Practices is amultiple site organization consisting of ambulatory clinics and hospital sitesin [place], [place], [place] and [place]. This disclosure is being madepursuant to the Care Everywhere program and may not contain all information available regarding this patient. Last updated 17.[facility] Allergies Active Allergy Reactions Criticality Noted Date Comments Propoxyphene N-Apap 05/04/2016 Meperidine 05/04/2016 Medications * Be aware that medications may not be up to date on this document. Alwaysverify current medications with the patient. metFORMIN (GLUCOPHAGE) 500 MG tablet Take 500 mg by mouth 2 times daily with morning and evening meal Active lisinopril (PRINIVIL; ZESTRIL) 20 MG tablet Take 20 mg by mouth once daily Active Exenatide ER (BYDUREON) 2 MG SRER Active insulin detemir (LEVEMIR) vial Inject subcutaneously at bedtime Active atorvastatin (LIPITOR) 40 MG tablet Take 40 mg by mouth at bedtime Active fluticasone propionate (FLONASE) 50 MCG/ACT nasal spray [place] 1 [place] into each nostril once daily 1 Bottle 1 7 Active Social History Tobacco Use Types Packs/Day Years Used Date Smoking Tobacco: Never Alcohol Use Standard Drinks/Week Comments Yes 0 (1 standard drink = 0.6 oz pur e alcohol) occ Comments No Sex and Gender Information Value Date Recorded Sex Assigned at Not on file Legal Sex Female 8:56 AM FRUIT WASHER Gender Identity Not on file Sexual Orientation Not on file Last Filed Vital Signs Vital Sign Reading Time Taken Comments Blood Pressure 124/86 05/04/2016 10:03 AM FRUIT WASHER Pulse 82 05/04/2016 9:48 AM FRUIT WASHER Temperature 36.5 C (97.7 F) 05/04/2016 9:48 AM FRUIT WASHER Respiratory Rate 20 05/04/2016 9:48 AM FRUIT WASHER Oxygen Saturation - - Inhaled Oxygen Concentration - - Weight 122.5 kg (270 lb) 05/04/2016 9:48 AM FRUIT WASHER Height 162.6 cm (5' 4) 05/04/2016 9:48 AM FRUIT WASHER Body Mass Index 46.35 05/04/2016 9:48 AM FRUIT WASHER Plan of Treatment Health Maintenance Due Date Last Done Comments COLOGUARD (AGES 45-75) - COLON CA SCREENING 1968 COLON MONITORING 1968 COLONOSCOPY - COLON CA SCREENING 1968 CT COLONOGRAPHY - COLON CA SCREENING 1968 Colorectal Cancer Screening 1968 FIT - COLON CA SCREENING 1968 FLEX SIG - COLON CA SCREENING 1968 MAMMOGRAM 1968 HIV SCREENING 07/28/1983 HEPATITIS C SCREENING 07/23/1986 DTAP/TDAP/TD VACCINES (1 - Tdap) 07/28/1987 HEPATITIS B VACCINE (1 of 3 - 19+ 3-dose series) 07/28/1987 PAP SMEAR 1989 PNEUMOCOCCAL VACCINE 50+ (1 of 1 - PCV) 2018 ZOSTER VACCINE (1 of 2) 2018 DEPRESSION SCREENING 03/18/2024 COVID-19 VACCINE ( - 2024- season) 2024 03/09/2021, 05/31/2020, 05/10/2020 INFLUENZA VACCINE (#1) 2024 , 12/12/2019, 12/11/2019, Additional history exists HIB VACCINE Aged Out No longer eligi ble based on patient's age to complete this topic HPV VACCINE Aged Out No longer eligi ble based on patient's age to complete this topic MENINGOCOCCAL (Group B) VACCINE SHARED DECISION-MAKING Aged Out No longer eligible based on patient's age to complete this topic MENINGOCOCCAL GROUPS A/C/Y/W VACCINE Aged Out No longer eligible based on patient's age to complete this topic Insurance Care Teams Senior Customer Service Representative Relationship Specialty Start Date End Date Yaima Shea MD PCP - General Internal Medicine 05/04/16
--- OUTSIDE RECORDS SUMMARY | 2025-03-10 07:49 | XMS_ITS | Encounter Summary ---
Author Organization [facility] Address [address] [place] [address] Care Team Providers Care Talent Sourcing Specialist Name Role Phone Lilian Moore MD Primary Care Provider [phone] Encounter Details Date Type Department Care Team (Late st Contact Info) Description 06/03/[address] [facility] Internal Medicine Medical [place] A [facility] [address] [facility] [address] [phone] Yaima Shea MD [address] [place] [address] [address] [place] [address] Social History Tobacco Use Types Packs/Day Years Used Date Smoking Tobacco: Never Assessed Comments Unknown Sex and Gender Information Value Date Recorded Sex Assigned at Not on file Legal Sex Female 3:48 AM TRANSMISSION MAINTENANCE SUPERVISOR Gender Identity Not on file Sexual Orientation Not on file documented as of this encounter Progress Notes * Yaima Shea MD - 08/08/2007 12:38 PM CDT TIME:04:44 pm PATIENT`S HOME PHONE: PATIENT`S WORK PHONE: PATIENT`S INSURANCE: [facility] WHO TOOK THE CALL: Diamond Cowan I GENERAL INFORMATION ALTERNATIVE PHONE NUMBER: [phone] WHO CALLED: Patient called. CURRENT ALLERGY LIST: [facility] NUMBER: [phone] PROBLEMS: CONGESTION: Patient complains of sinus congestion, complains of chest congestion. The symptoms began approximately 4 days ago. COUGH: . deep hard dry cough ... SORE THROAT: . can barely talk ...lot of drainage down the throat...no other sx...has used otc cough drops and syrup and nyquil SECTION 1: DOCTOR`S RESPONSE: iveth 06/03/06 at 05:24 pm MEDICATIONS: Call in to Pharmacy [facility] 30-10-100 MG/5ML OUNCE, 2 tsp q 6 hours, 8 Dispensed, status: NEW PRESCRIPTION, 06/03/2006. FINAL ACTION: milton 06/03/06 at 06:06 pm Spoke with patient 06/03/06 at 06:06 pm. Called pharmacy at 06/03/06 at 06:06 pm. documented in this encounter Plan of Treatment Upcoming Encounters Date Type Department Care Team (Late st Contact Info) Description 05/11/2025 11:20 AM TRANSMISSION MAINTENANCE SUPERVISOR Office Visit [facility] Primary [facility] [address] [place] [phone] Lilian Moore MD [address] [place] [phone] 07/12/2025 3:00 PM CDT Office Visit [facility] Diabetes Care [place] [address] [facility] 100 [place] [address] Pallavi Laurent FNP [address] [facility] [address] [place] [address] documented as of this encounter Visit Diagnoses Not on filedocumented in this encounter Care Teams Talent Sourcing Specialist Relationship Specialty Start Date End Date Lilian Moore MD [address] [place] [phone] PCP - General Family Practice 05/07/24 documented as of this encounter
--- OUTSIDE RECORDS SUMMARY | 2025-03-10 07:49 | XMS_ITS | Encounter Summary ---
Author Organization [facility] Address [address] [place] [address] Care Team Providers Care Airplane Dispatch Clerk Name Role Phone Lilian Moore MD Primary Care Provider [phone] Encounter Details Date Type Department Care Team (Latest Contact Info) Description 10/22/1999 Outpatient Historical [facility] Mikhail Talbot MD [address] [place] [address] Abnormal findings on screening (Primary Dx) Social History Tobacco Use Types Packs/Day Years Used Date Smoking Tobacco: Never Assessed Comments Unknown Sex and Gender Information Value Date Recorded Sex Assigned at Not on file Legal Sex Female 3:48 AM PRECISION STRUCTURAL METAL FITTER Gender Identity Not on file Sexual Orientation Not on file documented as of this encounter Plan of Treatment Upcoming Encounters Date Type Department Care Team (Late st Contact Info) Description 05/11/2025 11:20 AM PRECISION STRUCTURAL METAL FITTER Office Visit [facility] Primary Care [address] [address] Lilian Moore MD [address] [place] [phone] 07/12/2025 3:00 PM CDT Office Visit [facility] Diabetes Care [facility] [address] [address] Pallavi Laurent, ENERGY RATER [address] [facility] [address] [place] [address] documented as of this encounter Visit Diagnoses Diagnosis Abnormal findings on screening- Primary documented in this encounter Care Teams Airplane Dispatch Clerk Relationship Specialty Start Date End Date Lilian Moore MD [address] [place] [phone] PCP - General Family Practice 05/07/24 documented as of this encounter
--- OUTSIDE RECORDS SUMMARY | 2025-03-10 07:49 | XMS_ITS | Encounter Summary ---
Author Organization [facility] Address [address] [place] [address] Care Team Providers Care School Based Therapist Name Role Phone Lilian Moore MD Primary Care Provider [phone] Encounter Details Date Type Department Care Team (Latest Contact Info) Description 12/11/2005 Outpatient Historical [facility] Internal Medicine Medical [place] A [facility] [address] [facility] [address] [phone] Yaima Shea MD [address] [place] [address] [address] [place] [address] Impaired Fasting Glucose (Primary Dx) Social History Tobacco Use Types Packs/Day Years Used Date Smoking Tobacco: Never Assessed Comments Unknown Sex and Gender Information Value Date Recorded Sex Assigned at Not on file Legal Sex Female 3:48 AM CHIEF CREATIVE OFFICER Gender Identity Not on file Sexual Orientation Not on file documented as of this encounter Plan of Treatment Upcoming Encounters Date Type Department Care Team (Late st Contact Info) Description 05/11/2025 11:20 AM CHIEF CREATIVE OFFICER Office Visit [facility] Primary Care [address] [address] Lilian Moore MD [facility] [place] [address] 07/12/2025 3:00 PM CDT Office Visit [facility] Diabetes Care [place] [address] [facility] [address] [place] [address] Mehran Pallavi Cristin, GAMBLING COUNSELLOR [address] [place] [address] [place] [address] documented as of this encounter Procedures Procedure Name Priority Date/Time Associated Diagnosis Comments HEMOGLOBIN A1C Routine 12/11/2005 1:56 PM CDT documented in this encounter Results * (ABNORMAL) HEMOGLOBIN A1C (12/11/2005 1:56 PM CDT) HEMOGLOBIN A1C 6.2(H) 3.9 - 6.1 % of Hgb INTERFACE SYSTEM GLUCOSE, MEAN BLOOD 120 mg/dL INTERFACE SYSTEM 12/11/2005 1:56 PM CDT us Yaima Shea MD CHEMISTRY ORDERABLES Final R esult INTERFACE SYSTEM Refer to clinic/hospital department documented in this encounter Visit Diagnoses Diagnosis Impaired fasting glucose- Primary documented in this encounter Care Teams School Based Therapist Relationship Specialty Start Date End Date Lilian Moore MD [address] [place] [phone] PCP - General Family Practice 05/07/24 documented as of this encounter
--- OUTSIDE RECORDS SUMMARY | 2025-03-10 07:49 | XMS_ITS | Encounter Summary ---
Author Organization [facility] Address [address] [place] [address] Care Team Providers Care Flexographic Printing Press Operator Name Role Phone Lilian Moore MD Primary Care Provider [phone] Encounter Details Date Type Department Care Team (Late st Contact Info) Description 12/20/2004 Outpatient Historical [facility] Internal Medicine Medical [place] [facility] [address] [phone] Robert Magana MD [address] [place] [address] Social History Tobacco Use Types Packs/Day Years Used Date Smoking Tobacco: Never Assessed Comments Unknown Sex and Gender Information Value Date Recorded Sex Assigned at Not on file Legal Sex Female 3:48 AM MACHINE STONE POLISHER APPRENTICE Gender Identity Not on file Sexual Orientation Not on file documented as of this encounter Plan of Treatment Upcoming Encounters Date Type Department Care Team (Late st Contact Info) Description 05/11/2025 11:20 AM MACHINE STONE POLISHER APPRENTICE Office Visit [facility] Primary Care [address] [address] Lilian Moore MD [address] [place] [phone] 07/12/2025 3:00 PM CDT Office Visit [facility] [phone] [place] [address] [address] [place] [phone] Pallavi Laurent, CONTRACT MANAGER [address] [facility] [address] [place] [address] documented as of this encounter Visit Diagnoses Not on filedocumented in this encounter Care Teams Flexographic Printing Press Operator Relationship Specialty Start Date End Date Lilian Moore MD [address] [place] [phone] PCP - General Family Practice 05/07/24 documented as of this encounter
--- OUTSIDE RECORDS SUMMARY | 2025-03-10 07:49 | XMS_ITS | Encounter Summary ---
Author Organization [facility] Address [address] [place] [address] Care Team Providers Care Icu Rn Name Role Phone Lilian Moore MD Primary Care Provider [phone] Encounter Details Date Type Department Care Team (Latest Contact Info) Description 08/05/2008 Outpatient Historical [facility] ANTONIO Talbot, Mikhail Webster MD [address] [place] [address] Other Screening Mammogram Social History Tobacco Use Types Packs/Day Years Used Date Smoking Tobacco: Never Alcohol Use Standard Drinks/Week Comments No 0 (1 standard drink = 0.6 oz pur e alcohol) Comments No Sex and Gender Information Value Date Recorded Sex Assigned at Not on file Legal Sex Female 3:48 AM FORECAST ANALYST Gender Identity Not on file Sexual Orientation Not on file documented as of this encounter Plan of Treatment Upcoming Encounters Date Type Department Care Team (Late st Contact Info) Description 05/11/2025 11:20 AM FORECAST ANALYST Office Visit [facility] Primary Care [address] [address] Lilian Moore MD [facility] [place] [address] 07/12/2025 3:00 PM CDT Office Visit [facility] Diabetes Care [facility] [address] [place] [address] 100 [place] [phone] Pallavi Laurent, GRAD[employer]ATE [employer] [address] [facility] [address] [place] [address] documented as of this encounter Procedures Procedure Name Priority Date/Time Associated Diagnosis Comments MAMMO SCREEN BILAT W OR WO CAD Routine 08/05/2008 3:50 PM CDT documented in this encounter Results * MAMMO DIGITAL SCREEN BILAT (08/05/2008 3:50 PM CDT) Anatomical Region Laterality Modality Breast Bilateral Other 08/05/2008 3:50 PM CDT Narrative 08/10/2008 11:39 AM CDT [address] [address] Admit Date: 08/05/2008 THIAGO FORD Sex: F Admit Prov: MIKHAIL TALBOT Eleanor Date: 1970 Primary Care Prov: JORGITO RUSSO; CMRN: [id number] BRIELLE ACOSTA SSN: [id number] Room: B-A IMAGING SERVICES Ordering Prov: MIKHAIL TALBOT Eleanor Accession Number: [id number] Interpretation DIGITAL SCREENING MAMMOGRAM WITH COMPUTER-ASSISTED DIAGNOSIS History: Annual screening study. Findings: The breasts were imaged with digital mammographic technique. The breasts are almost entirely fat. No significant mass, malignant calcification or architectural distortion is noted. The CAD system does not highlight any suspicious areas. Summary: No mammographic evidence of malignancy. There has been no significant change from prior study of 08/2003 Recommendations: Bilateral yearly screening mammogram is recommended. BIRADS 1 - Negative. Assessment BIRADS: 1-Negative Recommendation: Normal interval follow-up Dictated by: MADISON VILLALBA Electronically signed by: MADISON VILLALBA 08/10/2008 11:39 Transcribed: 08/08/2008 12:52 AMK Procedure Note Madison Smith MD - 08/10/2008 [place] [address] [place], [place] [address] Admit Date: 08/05/2008 THIAGO FORD Sex: F Admit Prov: MIKHAIL TALBOT Date: 1970 Primary Care Prov: JORGITO RUSSO; CMRN: [id number] BRIELLE ACOSTA SSN: [id number] Room: MDB-A IMAGING SERVICES Ordering Prov: MIKHAIL TALBOT Interpretation DIGITAL SCREENING MAMMOGRAM WITH COMPUTER-ASSISTED DIAGNOSIS History: Annual screening study. Findings: The breasts were imaged with digital mammographictechnique. The breasts are almost entirely fat. No significant mass, malignant calcification or architectural distortion is noted. The CAD system does not highlight any suspicious areas. Summary: No mammographic evidence of malignancy. There has been no significant change from prior study of 08/2003 Recommendations: Bilateral yearly screening mammogram is recommended. BIRADS 1 - Negative. Assessment BIRADS: 1-Negative Recommendation: Normal interval follow-up Dictated by: MADISON VILLALBA Electronically signed by: MADISON VILLALBA 08/10/2008 11:39 Transcribed: 08/08/2008 12:52 AMK Mikhail Talbot MD MAMMO ORDERABLES Final Resul t documented in this encounter Visit Diagnoses Diagnosis Other screening mammogram documented in this encounter Care Teams Icu Rn Relationship Specialty Start Date End Date Lilian Moore MD [address] [place] [phone] PCP - General Family Practice 05/07/24 documented as of this encounter
--- OUTSIDE RECORDS SUMMARY | 2025-03-10 07:49 | XMS_ITS | Encounter Summary ---
Author Organization [facility] Address [address] [place] [address] Care Team Providers Care Engineering Instructor Name Role Phone Lilian Moore MD Primary Care Provider [phone] Encounter Details Date Type Department Care Team (Late st Contact Info) Description 03/09/2025 External Device Data ST[place] ABSTRACTION Provider, Abstract NO ADDRESS ON FILE Social History Tobacco Use Types Packs/Day Years Used Date Smoking Tobacco: Never Smokeless Tobacco: Never Alcohol Use Standard Drinks/Week Comments Yes 0 (1 standard drink = 0.6 oz pur e alcohol) on occasion Feeling Safe Answer Date Recorded Are you in a relationship wi th someone who hurts you emotionally and/or physically? No 08/10/2022 Comments No Sex and Gender Information Value Date Recorded Sex Assigned at Not on file Legal Sex Female 3:48 AM PRODUCTION ESTIMATOR Gender Identity Not on file Sexual Orientation Not on file Occupation Industry Job Start Date Job End Date Not on file Not on file Not on file Not on file documented as of this encounter Plan of Treatment Upcoming Encounters Date Type Department Care Team (Late st Contact Info) Description 05/11/2025 11:20 AM PRODUCTION ESTIMATOR Office Visit [facility] Primary Care [address] [address] Lilian Moore MD [address] [place] [phone] 07/12/2025 3:00 PM CDT Office Visit [facility] Diabetes Care [place] [address] [place] [phone] Pallavi Laurent, DRAPERY HEAD FORMER [address] [facility] [address] [place] [phone] documented as of this encounter Visit Diagnoses Not on filedocumented in this encounter Care Teams Engineering Instructor Relationship Specialty Start Date End Date Lilian Moore MD [address] [place] [phone] PCP - General Family Practice 05/07/24 documented as of this encounter
--- OUTSIDE RECORDS SUMMARY | 2025-03-10 07:49 | XMS_ITS | Encounter Summary ---
Author Organization [facility] Address [address] [place] [address] Care Team Providers Care Catalyst Supervisor Name Role Phone Lilian Moore MD Primary Care Provider [phone] Encounter Details Date Type Department Care Team (Late Contact Info) Description 10/07/2000 Outpatient Historical [facility] Internal Medicine Medical [place] A [facility] [address] [facility] [address] [phone] Holden Hightower MD [address] [place] [address] Social History Tobacco Use Types Packs/Day Years Used Date Smoking Tobacco: Never Assessed Comments Unknown Sex and Gender Information Value Date Recorded Sex Assigned at Not on file Legal Sex Female 3:48 AM MACHINE DESIGN CHECKER Gender Identity Not on file Sexual Orientation Not on file documented as of this encounter Plan of Treatment Upcoming Encounters Date Type Department Care Team (Late Contact Info) Description 05/11/2025 11:20 AM MACHINE DESIGN CHECKER Office Visit [facility] Primary Care [address] [address] Lilian Moore MD [facility] [place] [address] 07/12/2025 3:00 PM CDT Office Visit [facility] Diabetes Care [facility] [phone] [place] [address] [address] [place] [phone] Pallavi Laurent, PHOTOENGRAVING PRINTER [address] [facility] [address] [place] [address] documented as of this encounter Visit Diagnoses Not on filedocumented in this encounter Care Teams Catalyst Supervisor Relationship Specialty Start Date End Date Lilian Moore MD [address] [place] [phone] PCP - General Family Practice 05/07/24 documented as of this encounter
--- OUTSIDE RECORDS SUMMARY | 2025-03-10 07:49 | XMS_ITS | Encounter Summary ---
Author Organization [facility] Address [address] [place] [address] Care Team Providers Care Orchestra Director Name Role Phone Lilian Moore MD Primary Care Provider [phone] Encounter Details Date Type Department Care Team (Late st Contact Info) Description 10/19/2004 Outpatient Historical [facility] Mikhail Talbot MD [address] [place] [address] Social History Tobacco Use Types Packs/Day Years Used Date Smoking Tobacco: Never Assessed Comments Unknown Sex and Gender Information Value Date Recorded Sex Assigned at Not on file Legal Sex Female 3:48 AM CONTRACT RECRUITER Gender Identity Not on file Sexual Orientation Not on file documented as of this encounter Plan of Treatment Upcoming Encounters Date Type Department Care Team (Late st Contact Info) Description 05/11/2025 11:20 AM CONTRACT RECRUITER Office Visit [facility] Primary Care [address] [address] Lilian Moore MD [address] [place] [phone] 07/12/2025 3:00 PM CDT Office Visit [facility] Diabetes Care [facility] [address] [address] Pallavi Laurent, [facility] [address] [facility] [address] [place] [address] documented as of this encounter Visit Diagnoses Not on filedocumented in this encounter Care Teams Orchestra Director Relationship Specialty Start Date End Date Lilian Moore MD [address] [place] [phone] PCP - General Family Practice 05/07/24 documented as of this encounter
--- OUTSIDE RECORDS SUMMARY | 2025-03-10 07:49 | XMS_ITS | Encounter Summary ---
Author Organization [facility] Address [address] [place] [address] Care Team Providers Care Furnace Setter Name Role Phone Lilian Moore MD Primary Care Provider [phone] Encounter Details Date Type Department Care Team (Late Contact Info) Description 12/11/2005 Outpatient Historical [facility] Internal Medicine Medical [facility] [address] [facility] [address] [phone] Yaima Shea MD [address] [place] [address] Social History Tobacco Use Types Packs/Day Years Used Date Smoking Tobacco: Never Assessed Comments Unknown Sex and Gender Information Value Date Recorded Sex Assigned at Not on file Legal Sex Female 3:48 AM DIRECTOR OF CONVENTION SERVICES Gender Identity Not on file Sexual Orientation Not on file documented as of this encounter Last Filed Vital Signs Vital Sign Reading Time Taken Comments Blood Pressure 110/80 12/11/2005 1:30 PM CDT Pulse 74 12/11/2005 1:30 PM CDT Temperature - - Respiratory Rate 12 12/11/2005 1:30 PM CDT Oxygen Saturation - - Inhaled Oxygen Concentration - - Weight 135.2 kg (298 lb) 12/11/2005 1:30 PM CDT Height - - Body Mass Index - - documented in this encounter Plan of Treatment Upcoming Encounters Date Type Department Care Team (Late Contact Info) Description 05/11/2025 11:20 AM DIRECTOR OF CONVENTION SERVICES Office Visit [facility] Primary Care [facility] [address] [place] [phone] Lilian Moore MD [address] [place] [phone] 07/12/2025 3:00 PM CDT Office Visit [facility] [address] [facility] [address] [place] [address] Pallavi Laurent, [facility] [address] [facility] [address] [place] [address] documented as of this encounter Visit Diagnoses Not on filedocumented in this encounter Care Teams Furnace Setter Relationship Specialty Start Date End Date Lilian Moore MD [address] [place] [phone] PCP - General Family Practice 05/07/24 documented as of this encounter
--- OUTSIDE RECORDS SUMMARY | 2025-03-10 07:49 | XMS_ITS | Encounter Summary ---
Author Organization [facility] Address [address] [place] [address] Care Team Providers Care Signal Operator Technical Name Role Phone Lilian Moore MD Primary [...] on file Legal Sex Female 3:48 AM SWAMPER Gender Identity Not on file Sexual Orientation Not on file Occupation Industry Job Start Date Job End Date Not on file Not on file Not on file Not on file documented as of this encounter Plan of Treatment Upcoming Encounters Date Type Department Care Team (Late st Contact Info) Description 05/11/2025 11:20 AM SWAMPER Office Visit [facility] Primary Care [address] [address] Lilian Moore MD [address] [place] [phone] 07/12/2025 3:00 PM CDT Office Visit [facility] Diabetes Care [place] [address] [place] [phone] Pallavi Laurent, GLASS SMOOTHER [address] [facility] [address] [place] [phone] documented as of this encounter Visit Diagnoses Not on filedocumented in this encounter Care Teams Signal Operator Technical Relationship Specialty Start Date End Date Lilian Moore MD [address] [place] [phone] PCP - General Family Practice 05/07/24 documented as of this encounter
--- OUTSIDE RECORDS SUMMARY | 2025-03-10 07:49 | XMS_ITS | Encounter Summary ---
Author Organization [facility] Address [address] [place] [address] Care Team Providers Care Machinist Linotype Name Role Phone Lilian Moore MD Primary Care Provider [phone] Encounter Details Date Type Department Care Team (Late Contact Info) Description 03/31/1999 Outpatient Historical [facility] Internal Medicine Medical [place] [facility] [address] [facility] [address] [phone] Odette Porter Social History Tobacco Use Types Packs/Day Years Used Date Smoking Tobacco: Never Assessed Comments Unknown Sex and Gender Information Value Date Recorded Sex Assigned at Not on file Legal Sex Female 3:48 AM RN TELEMETRY Gender Identity Not on file Sexual Orientation Not on file documented as of this encounter Plan of Treatment Upcoming Encounters Date Type Department Care Team (Late Contact Info) Description 05/11/2025 11:20 AM RN TELEMETRY Office Visit [facility] Primary Care [address] [address] Lilian Moore MD [address] [place] [phone] 07/12/2025 3:00 PM CDT Office Visit [facility] Diabetes Care [place] [address] [facility] [address] [place] [phone] Pallavi Laurent FNP [address] [facility] [address] [place] [phone] documented as of this encounter Visit Diagnoses Not on filedocumented in this encounter Care Teams Machinist Linotype Relationship Specialty Start Date End Date Lilian Moore MD [facility] [place] [facility] [place] [place] [address] PCP - General Family Practice 05/07/24 documented as of this encounter
--- OUTSIDE RECORDS SUMMARY | 2025-03-10 07:49 | XMS_ITS | Encounter Summary ---
Author Organization [facility] Address [address] [place] [address] Care Team Providers Care Director Of Child Welfare Services Name Role Phone Lilian Moore MD Primary Care Provider [phone] Encounter Details Date Type Department Care Team (Latest Contact Info) Description 09/20/1999 Outpatient Historical [facility] Mikhail Talbot MD [address] [place] [phone] Abnormal findings on screening (Primary Dx) Social History Tobacco Use Types Packs/Day Years Used Date Smoking Tobacco: Never Assessed Comments Unknown Sex and Gender Information Value Date Recorded Sex Assigned at Not on file Legal Sex Female 3:48 AM FACULTY SUPPORT COORDINATOR Gender Identity Not on file Sexual Orientation Not on file documented as of this encounter Plan of Treatment Upcoming Encounters Date Type Department Care Team (Late st Contact Info) Description 05/11/2025 11:20 AM FACULTY SUPPORT COORDINATOR Office Visit [facility] Primary Care [address] [phone] Lilian Moore MD [address] [place] [phone] 07/12/2025 3:00 PM CDT Office Visit [facility] Diabetes Care [facility] [address] [phone] Pallavi Laurent, WATER MAINTENANCE SUPERVISOR [address] [facility] [address] [place] [address] documented as of this encounter Visit Diagnoses Diagnosis Abnormal findings on screening- Primary documented in this encounter Care Teams Director Of Child Welfare Services Relationship Specialty Start Date End Date Lilian Moore MD [address] [place] [phone] PCP - General Family Practice 05/07/24 documented as of this encounter
[2025-03-10 17:16] LABS: Alanine Aminotransferase 20 U/L (6-35); Albumin Level 4.0 g/dL (3.5-5.1); Alkaline Phosphatase 88 U/L (38-126); Anion Gap 7 mmol/L (4-12); Aspartate Amino Transferase 40 U/L (14-36); Bilirubin,Total 1.4 mg/dL (0.2-1.3); Blood Urea Nitrogen 11 mg/dL (7-17); Calcium 9.1 mg/dL (8.4-10.2); Carbon Dioxide 27 mmol/L (22-30); Chloride 105 mmol/L (98-107); Cholesterol 207 mg/dL (0-200); Estimated Glomerular Filt Rate > 60; Glucose 82 mg/dL (65-110); HDL Direct 46 mg/dL; Potassium 3.7 mmol/L (3.4-5.0); Sodium 139 mmol/L (137-145); Total Protein 7.3 g/dL (6.3-8.2); Triglycerides 155 mg/dL (<150)
[2025-03-10 17:31] LABS: MALB Creatinine Ratio 6.3 mg/g (0-30)
[2025-03-10 17:32] LABS: Hemoglobin A1C 5.4 % (<5.7)
== END 2025-03-10 07:44 | disposition home or self-care (01) ==
LOC: ANHGOSHLAB 07:46
PROVIDERS: Visit Provider Physician Assistant
DX: E11.29 Type 2 diabetes mellitus with other diabetic kidney complication (principal); R80.9 Proteinuria, unspecified; Z79.4 Long term (current) use of insulin
CPT/HCPCS: 36415; 80053; 80061; 82043; 83036